=== PATIENT | male | born 1960 | race Caucasian/White ===

== ENCOUNTER 2018-12-03 10:17 | Emergency (ER) | payer OTHER, SELFPAY ==
[2018-12-03 10:18] VITALS: BP 140/84; PULSE 66; RESP 16; TEMP 36.7; O2SAT 98; BMI 33.0
[2018-12-03 10:31] VITALS: O2SAT 97
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
[2018-12-03] MEDS: 0.9% Normal Saline 1,000 ML 999 ML IV (10:41)
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
[2018-12-03 11:03] LABS: Absolute Lymphocyte Count 1.59 X10^3/ul (0.83-4.51); Absolute Neutrophil Count 4.7 X10^3/uL (2.0-7.7); Basophil# 0.05 X10^3/uL; Basophil% 0.7 % (0-1); Eosinophil# 0.18 X10^3/uL; Eosinophils% 2.5 % (0-5); Hematocrit 47.5 % (40-54); Hemoglobin 16.2 g/dl (13.0-16.5); Lymphocyte # 1.59 X10^3/ul (4.0); Lymphocyte % 22.3 % (19-41); Mean Corp Hgb Conc 34.1 g/gl (32-36); Mean Corpuscular Hgb 29.1 pg (27.0-32.0); Mean Corpuscular Volume 85.4 fL (80-94); Mean Platelet Vol. 10.1 fl (6.2-12.0); Monocyte# 0.54 X10^3/uL; Monocyte% 7.6 % (0-10); Neutrophil # 4.71 X10^3/uL (2.7-7.7); Neutrophil % 66.2 % (47-70); Platelet Count 190 K/mm3 (150-450); RBC Distribution Width CV 13.6 % (11.6-14.6); RBC Distribution Width SD 42.1 fl (35.1-43.9); Red Blood Count 5.56 M/mm3 (4.6-6.2); White Blood Count 7.1 K/mm3 (4.4-11.0)
[2018-12-03 11:06] LABS: POSITIVE COUNT NO; POSITIVE DIFFERENTIAL NO; POSITIVE MORPHOLOGY NO
[2018-12-03 11:08] LABS: Anion Gap 3 (5-15); BUN 17 mg/dL (7-18); Calcium,Total 8.6 mg/dL (8.5-10.1); Chloride 105 mmol/L (98-107); EST Glomerular Filtration Rate 82 mL/min (>60); Est Glom Filt Rate - Afr Amer 99 mL/min (>60); Estimated Creatinine Clearance 100.06 ml/min; Glucose 123 mg/dL (74-106); Potassium 3.7 mmol/L (3.5-5.1); Sodium Level 139 mmol/L (136-145)
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
[2018-12-03] MEDS: Diphth,Pertuss(Acell),Tet Vac 0.5 ML Vial IM (12:24)
== END 2018-12-03 12:36 | disposition home or self-care (01) ==
PROVIDERS: Emergency Provider Physician Assistant Medical; Family Provider Physician Assistant; PCP Physician Assistant
DX: S09.90XA Unspecified injury of head, initial encounter (principal); S30.1XXA Contusion of abdominal wall, initial encounter; S20.219A Contusion of unspecified front wall of thorax, initial encounter; S00.91XA Abrasion of unspecified part of head, initial encounter; S60.512A Abrasion of left hand, initial encounter; S60.511A Abrasion of right hand, initial encounter; V43.52XA Car driver injured in collision with other type car in traffic accident, initial encounter; Y93.9 Activity, unspecified; Y92.9 Unspecified place or not applicable; Y99.9 Unspecified external cause status
CPT/HCPCS: 70450; 71260; 72125; 73130; 74177; 80048; 85025; 90715; 96360; 99285; J7030; Q9967; A4216

== ENCOUNTER 2019-10-31 12:32 | Inpatient (IN) | payer OTHER, SELFPAY ==
[2019-10-31] VITALS (14 sets, daily range): BP systolic 99–133; BP diastolic 69–80; PULSE 86–108; RESP 17–31; TEMP 36.8–38.8; O2SAT 94–99; BMI 32.2; BMI 31.9
--- NOTE | 2019-10-31 12:40 | EKG12_ITS ---
Test Reason : SOB Blood Pressure : / mmHG Vent. Rate : 092 BPM Atrial Rate : 092 BPM P-R Int : 158 ms QRS Dur : 092 ms QT Int : 344 ms P-R-T Axes : 039 041 037 degrees QTc Int : 425 ms Normal sinus rhythm Normal ECG Confirmed by MILLICENT EATON ([id number]), associate editor MICHAEL HOGAN ([id number] on 11/06/2019 1:36:45 PM Referred By: CD Confirmed By:MILLICENT EATON
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
[2019-10-31] MEDS: Acetaminophen 325 MG Tablet 650 MG PO ×2 (13:04→20:20)
[2019-10-31 13:12] LABS: Absolute Lymphocyte Count 0.74 X10^3/uL (0.83-4.51); Hematocrit 44.7 % (40-54); Hemoglobin 15.5 g/dL (13.0-16.5); Lymphocyte # 0.74 X10^3/ul (4.0); Lymphocyte % 18.4 % (19-41); Mean Corp Hgb Conc 34.7 g/dL (32-36); Mean Corpuscular Hgb 29.2 pg (27.0-32.0); Mean Corpuscular Volume 84.2 fL (80-94); Monocyte% 7.5 % (0-10); NRBC Flagged by Analyzer 0 % (0-5); Neutrophil # 2.96 X10^3/uL (2.7-7.7); Neutrophil % 73.6 % (47-70); Platelet Count 136 K/mm3 (150-450); Red Blood Count 5.31 M/mm3 (4.6-6.2)
--- NOTE | 2019-10-31 13:16 | ED.VIS.GEN ---
History of Present Illness Chief Complaint: Shortness of Breath Narrative: 59-year-old male presents with shortness of breath. He has had symptoms for 1 week that began with diarrhea, fever, chills, cough, shortness of breath, and body aches. He went to [facility] yesterday and had a COVID swab but he does not have the results yet. He has been exposed to multiple COVID-19 cases at work. He denies any chronic respiratory illness. He continues to have a fever today and is not feeling any better. His shortness of breath has increased markedly over the past 24 hours. He has been gradually getting worse since this morning. Current severity is moderate. Prior similar symptoms: Yes Past Medical History - Allergies and Home Meds Allergies/Adverse Reactions: Allergies No Known Allergies Allergy (Verified 10/31/19 12:35) Primary Care Physician: Ingrid Calderon PA [Primary Care Provider] - Prior records reviewed: Yes Smoking Status: Never smoker Review of Systems General: Reports: Malaise. Denies: Chills, Fever, Sweats Eyes: Denies: Visual changes - bilaterally, Diplopia ENT: Denies: Rhinorrhea, Sore throat Cardiovascular: Reports: Chest pain. Denies: Palpitations Respiratory: Reports: Dyspnea, Cough. Denies: Dyspnea on exertion Gastrointestinal: Denies: Abdominal pain, Nausea, Vomiting, Diarrhea, Melena, Hematochezia Genitourinary: Denies: Dysuria, Hematuria, Frequency Musculoskeletal: Denies: Back pain, Extremity Pain Skin: Denies: Rash, Wounds Neurological: Denies: Headache, Weakness, Numbness Hematologic: Denies: Easy bleeding Physical Exam Vital Signs/Narrative: Vital Signs Temp Pulse Resp BP Pulse Ox 10/31/19 13:08 101.8 F H 95 27 H 99/69 95 10/31/19 12:32 101.8 F H 108 H 17 120/71 95 General: Well nourished, Well developed, No Acute Distress Head: Normocephalic, Atraumatic Eyes: Perrl, EOMI ENT: No rhinorrhea, Dry mucous membranes Neck: Supple, Nontender Cardiovascular: Regular rate, Regular rhythm, No murmurs Respiratory: No distress, Chest nontender, Decreased Air Movement Abdomen: Soft, Nontender, Nondistended, Normal bowel sounds Back: Nontender, Normal Inspection Extremities: Nontender, No edema Skin: Normal color, No rash Neurological: Alert, Oriented x3, Cranial nerves II-XII grossly intact, Normal Strength, Normal Sensation Psychological: Normal affect, Normal Mood Diagnostic/Tx/Re-eval Chest X-Ray - ED: 1 View, Read by Radiologist bilateral infiltrates - Rhythm Strip Rhythm Strip: Sinus Rhythm Rate: 92 Ectopy: None - Medical Decision Making His white blood cell count is low, lymphocyte count low, platelets low, fairly classic COVID-19 presentation. Very high suspicion. I sent a swab. Chest x-ray revealed bilateral infiltrates, also concerning for COVID-19. I covered him with Rocephin and Zithromax. He has no respiratory issue but on reexamination, he is still tachypneic, having fairly market shortness of breath, and requiring 1 to 2 L of oxygen so I do feel he meets criteria for hospitalization and I suspect his length of stay will be greater than 2 midnights for completion of care. I feel that he meets criteria for full admission. He will be admitted to the COVID unit. - Critical Care Time Critical care time (excluding procedures): 30-74 minutes, Discussing w/Patient &/or Family/Province Archivist, Discussing w/Consultants, Arranging Admission or Transfer, Performing Direct Patient Care at Bedside ED Disposition - Plan for ED Patient: Disposition: Acute Care [facility] Diagnosis: Suspected COVID-19 virus infection, Community acquired pneumonia Referrals: Ingrid Calderon PA [Primary Care Provider] -
[2019-10-31 13:28] LABS: ALB/GLOB Ratio 0.8 RATIO (0.9-2.4); AST(SGOT) 58 U/L (15-37); Alanine Aminotransfer ALT/SGPT 67 U/L (16-61); Albumin, Serum 3.1 g/dL (3.2-5.0); Alkaline Phosphatase 53 U/L (45-117); Anion Gap 10 (5-15); BUN 15 mg/dL (7-18); BUN/Creat Ratio 14.2 RATIO (10-20); Chloride 102 mmol/L (98-107); Creatinine, Serum 1.06 mg/dL (0.70-1.30); EST Glomerular Filtration Rate 76 mL/min (>60); Est Glom Filt Rate - Afr Amer 92 mL/min (>60); Estimated Creatinine Clearance 93.26 ml/min; Globulin 3.9 g/dL (2.2-4.2); Glucose 123 mg/dL (74-106); Sodium Level 137 mmol/L (136-145)
[2019-10-31 13:38] LABS: Lactic Acid 1.1 mmol/L (0.4-1.9)
--- NOTE | 2019-10-31 14:00 | NURSING ---
MED SURG COVID INFECTION, PNEUMONIA PAINTSIL
[2019-10-31] MEDS: Ceftriaxone 1 GM/50 ML BAG IV (14:01)
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
--- NOTE | 2019-10-31 14:07 | NURSING ---
CV[facility] 201
[2019-10-31 18:29] LABS: Ferritin 1047 ng/mL (26-388); Magnesium 2.1 mg/dL (1.6-2.6)
[2019-10-31 18:35] LABS: D-Dimer Quantitative (DVT/PE) 0.69 FEU/ug/m (0.27-0.49)
[2019-11-01] VITALS (12 sets, daily range): BP systolic 110–142; BP diastolic 66–84; PULSE 84–107; RESP 18–20; TEMP 37.2–38.4; O2SAT 94–98
[2019-11-01] MEDS: Acetaminophen 325 MG Tablet 650 MG PO ×2 (04:52→21:25)
[2019-11-01 05:16] LABS: Absolute Lymphocyte Count 0.77 X10^3/uL (0.83-4.51); Absolute Neutrophil Count 3.2 X10^3/uL (2.0-7.7); Basophil# 0.01 X10^3/uL; Basophil% 0.2 % (0-1); Hematocrit 49.3 % (40-54); Hemoglobin 16.7 g/dL (13.0-16.5); Lymphocyte # 0.77 X10^3/ul (4.0); Lymphocyte % 18.2 % (19-41); Mean Corp Hgb Conc 33.9 g/dL (32-36); Mean Corpuscular Hgb 29.2 pg (27.0-32.0); Mean Corpuscular Volume 86.2 fL (80-94); Monocyte# 0.26 X10^3/uL; Monocyte% 6.1 % (0-10); NRBC Flagged by Analyzer 0 % (0-5); Neutrophil # 3.18 X10^3/uL (2.7-7.7); Neutrophil % 75.3 % (47-70); Platelet Count 132 K/mm3 (150-450); RBC Distribution Width CV 13.2 % (11.6-14.6); RBC Distribution Width SD 40.9 fl (35.1-43.9); Red Blood Count 5.72 M/mm3 (4.6-6.2); White Blood Count 4.2 K/mm3 (4.4-11.0)
[2019-11-01 05:51] LABS: ALB/GLOB Ratio 0.7 RATIO (0.9-2.4); AST(SGOT) 50 U/L (15-37); Alanine Aminotransfer ALT/SGPT 69 U/L (16-61); Albumin, Serum 3.2 g/dL (3.2-5.0); Alkaline Phosphatase 59 U/L (45-117); Anion Gap 12 (5-15); BUN 15 mg/dL (7-18); BUN/Creat Ratio 13.3 RATIO (10-20); Calcium,Total 8.3 mg/dL (8.5-10.1); Chloride 100 mmol/L (98-107); Creatinine, Serum 1.13 mg/dL (0.70-1.30); EST Glomerular Filtration Rate 71 mL/min (>60); Est Glom Filt Rate - Afr Amer 86 mL/min (>60); Estimated Creatinine Clearance 87.48 ml/min; Globulin 4.4 g/dL (2.2-4.2); Glucose 116 mg/dL (74-106); Potassium 3.1 mmol/L (3.5-5.1); Protein, Total 7.6 g/dL (6.4-8.2); Sodium Level 137 mmol/L (136-145)
--- NOTE | 2019-11-01 07:15 | PN_ITS ---
Patient Problems: Active and Suspected Problems Suspected COVID-19 virus infection (Acute) Community acquired pneumonia (Acute) Hypoxia (Acute) Hypokalemia (Acute) Reason for Visit: Follow-up on hypoxia/Acute COVID Subjective: Patient was seen and examined. Complains of multiple bowel movement, more than 4 times today. Stool for enteric panel is negative. Temperature appears to be better. T-max was 101.8. He complains of feeling worse, his breathing is the same. Now on 3L of oxygen. Vitals/I&O's: Vital Signs Temp Pulse Resp BP Pulse Ox 99.2 F H 95 20 H 132/81 H 97 11/01/19 02:43 11/01/19 04:00 11/01/19 02:43 11/01/19 02:43 11/01/19 02:43 Oxygen Flow Rate (L/min) 4 Oxygen Delivery Method Nasal Cannula Weight: 119 kg Body Mass Index (BMI) 31.9 Intake and Output for Last 24 Hours 10/30/19 10/31/19 11/01/19 23:59 23:59 23:59 Intake Total 1045 / 1345 550 / 550 Balance 1045 / 1345 550 / 550 General: Alert, Oriented x3, Cooperative, No apparent distress HEENT: Atraumatic, PERRLA, EOMI, Normocephalic Oral: Moist Mucosa Neck: Supple Lungs: Diminished Cardiovascular: Regular rate, Regular Rhythm, Normal S1, Normal S2, No murmurs Abdomen: Bowel Sounds Present, Soft, Non Tender, Non-Distended, No Hepato- splenomegaly Extremities: No edema Skin: No rashes Musculoskeletal: No Tenderness to Palpation of Joints or Extremities Lymphatic: No Cervical, Supraclavicular, or Inguinal Adenopathy Neurological: Cranial nerves II-XII grossly intact, Neuro grossly intact Psych/Mental Status: Normal Affect, Appropriate Microbiology Past 72 Hours 10/31/19 18:55 Interface Orders Legionella Antigen - Final 10/31/19 18:55 Interface Orders Streptococcus pneumoniae Antigen (M - Final 10/31/19 12:58 Mucosa - Nasopharyngeal Coronavirus COVID-19 PCR - Final SARS-CoV-2 (COVID 19) Laboratory Results 10/31/19 12:55: WBC 4.0 L, RBC 5.31, Hgb 15.5, Hct 44.7, MCV 84.2, MCH 29.2, MCHC 34.7, RDW Std Deviation 40.0, RDW Coeff of Douglas 13.0, Plt Count 136 L, MPV 10.0, Immature Gran % (Auto) 0.500, Neut % (Auto) 73.6 H, Lymph % (Auto) 18.4 L, [place] % (Auto) 7.5, Eos % (Auto) 0.0, Baso % (Auto) 0.0, Absolute Neuts (auto) 3.0, Absolute Lymphs (auto) 0.74 L, Nucleated RBC % 0 10/31/19 12:55: Lactic Acid 1.1 10/31/19 12:55: Sodium 137, Potassium 3.0 L, Chloride 102, Carbon Dioxide 25.0, Anion Gap 10, BUN 15, Creatinine 1.06, Estim Creat Clear Calc 93.26, Est GFR (MDRD) Af Amer 92, Est GFR (MDRD) Non-Af 76, BUN/Creatinine Ratio 14.2, Glucose 123 H, Calcium 8.0 L, Total Bilirubin 0.80, AST 58 H, ALT 67 H, Alkaline Phosphatase 53, Troponin I < 0.015, Total Protein 7.0, Albumin 3.1 L, Globulin 3.9, Albumin/Globulin Ratio 0.8 L 10/31/19 12:55: Magnesium 2.1, Ferritin 1047 H, C-React Prot Ext Range 49.60 H 10/31/19 12:55: Procalcitonin 0.10 H 10/31/19 12:58: COVID-19 (FAZAL) Cancelled 10/31/19 : D-Dimer Quant (PE/DVT) 0.69 H* 11/01/19 04:40: WBC 4.2 L, RBC 5.72, Hgb 16.7 H, Hct 49.3, MCV 86.2, MCH 29.2, MCHC 33.9, RDW Std Deviation 40.9, RDW Coeff of Douglas 13.2, Plt Count 132 L, MPV 10.0, Immature Gran % (Auto) 0.200, Neut % (Auto) 75.3 H, Lymph % (Auto) 18.2 L, [place] % (Auto) 6.1, Eos % (Auto) 0.0, Baso % (Auto) 0.2, Absolute Neuts (auto) 3.2, Absolute Lymphs (auto) 0.77 L, Nucleated RBC % 0 11/01/19 04:40: Sodium 137, Potassium 3.1 L, Chloride 100, Carbon Dioxide 25.0, Anion Gap 12, BUN 15, Creatinine 1.13, Estim Creat Clear Calc 87.48, Est GFR (MDRD) Af Amer 86, Est GFR (MDRD) Non-Af 71, BUN/Creatinine Ratio 13.3, Glucose 116 H, Calcium 8.3 L, Total Bilirubin 0.70, AST 50 H, ALT 69 H, Alkaline Phosphatase 59, Total Protein 7.6, Albumin 3.2, Globulin 4.4 H, Albumin/Globulin Ratio 0.7 L Current Medications Acetaminophen (Tylenol) 650 mg PO Q6H PRN PRN PRN Reason: Pain Score 1-10/Temp > 100.7 F Last Admin: 11/01/19 04:52 Dose: 650 mg Documented by: Albuterol Sulfate (Ventolin Hfa (Sp)) 2 puff INHALATION Q4H PRN PRN PRN Reason: SHORTNESS OF BREATH Enoxaparin Sodium (Lovenox) 40 mg SC DAILY [facility] Ceftriaxone Sodium (Rocephin) 1 gm in 50 mls @ 100 mls/hr IV Q24 [facility] Azithromycin 500 mg/ Dextrose 255 mls @ 250 mls/hr IV Q24 [facility] Sodium Chloride () 250 mls @ 15 mls/hr IV .[id number] PRN PRN Reason: Saline Flush Sodium Chloride () 250 mls @ 15 mls/hr IV .[id number] PRN PRN Reason: Additional IVPB Infusion Ondansetron HCl (Zofran) 4 mg IV Q8H PRN PRN PRN Reason: NAUSEA/VOMITING Potassium Chloride (K-Dur) 40 meq PO BIDCM [facility] Sodium Chloride () 10 - 40 ml IV UD PRN PRN Reason: SALINE FLUSH STROKE Vital Signs/Narrative: Vital Signs Pulse 11/01/19 04:00 95 Medical Necessity - Tobacco Use Smoking Status: Never smoker Tobacco Use: Non-smoker Assessment/Plan All Active Problems Suspected COVID-19 virus infection (Acute) Community acquired pneumonia (Acute) Hypoxia (Acute) Hypokalemia (Acute) 1. Acute hypoxic respiratory insufficiency secondary to acute COVID associated pneumonia, persists Continue on oxygen, albuterol inhaler as needed, incentive spirometer, IV antibiotics Wean off for Spo2 >94% 2. Acute COVID-19 pneumonia, bilateral infiltrates noted on chest x-ray Continue on empiric IV ceftriaxone and azithromycin Blood cultures are pending Urine streptococcal and Legionella antigen is negative Continue in isolation 3. Acute diarrhea likely related to COVID?19 Stool for enteric pathogens is negative Will continue on symptomatic care 4. Hypokalemia continue to #3, replaced, Magnesium level is 2.3 4. Obesity, BMI 31.9, lifestyle modification advised 5. DVT PPx- Lovenox SC 6. Code status - Full code Inpatient E&M: 25155 Subs Hosp L3
[2019-11-01] MEDS: Enoxaparin 40 MG/0.4 ML Syringe SC (08:33)
[2019-11-01] MEDS: Ceftriaxone 1 GM/50 ML BAG IV (08:33)
[2019-11-01 10:16] LABS: Magnesium 2.3 mg/dL (1.6-2.6)
--- NOTE | 2019-11-01 10:50 | CASEMGMT ---
LAURENCE GARCIA assessment: Phone interview with patient due to positive COVID test for initial transition planning/care coordination assessment. LAURENCE GARCIA introduced self and role at [facility], pt voices understanding and consents to assessment at this time. Pt is A/Ox4 at this time and answers all questions appropriately at this time. Care providers, pharmacy, and demographics verified at this time. Presentation: SOB, worsening, seen at [facility] hospital day prior and COVID swab done Admitting dx: Acute hypoxic resp failure/COVID 19-[facility] test came back positive PCP: [facility] Specialists: Pt states currently no specialists. Preferred Pharmacy: [facility] Insurance: MMO/[employer] Prescription Benefit: Pt states has Rx coverage. Living Will/HPOA: Pt states does not have LW/HPOA and declines AD info at this time. LNOK: Rachel Gross, Living Arrangements: Pt states lives with in home and states no concerns at home at this time. Pt states is independent with ADL's. Transportation: Pt states drives self and states no transportation concerns at this time. DME/HHC: Pt states no current DME and denies need for any DME at this time. CM to follow for home oxygen need and pt states no preference for DME company, if does qualify for home oxygen at discharge. Pt states no hx of HHC or SNF in the past. Pt states no concerns with going home at time of discharge. 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 Pt states does not smoke or drink ETOH. Pt voices no further concerns/needs at this time. CM to follow for home oxygen and for any further discharge planning/needs. Advised pt to ask for CM if any further questions/concerns/needs arise, voices understanding. Pt Goal: Home Plan: [place] LAURENCE GARCIA
[2019-11-01] MEDS: Enoxaparin 80 MG/0.8 ML Syringe 70 MG SC (14:32)
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
[2019-11-01] MEDS: Enoxaparin 120 MG/0.8 ML Syringe 110 MG SC (21:14)
[2019-11-02] VITALS (12 sets, daily range): BP systolic 134–151; BP diastolic 64–82; PULSE 84–109; RESP 18–20; TEMP 36.9–39.4; O2SAT 94–100
[2019-11-02 03:59] LABS: Absolute Lymphocyte Count 0.84 X10^3/uL (0.83-4.51); Absolute Neutrophil Count 4.6 X10^3/uL (2.0-7.7); Basophil# 0.01 X10^3/uL; Basophil% 0.2 % (0-1); Hematocrit 44.8 % (40-54); Hemoglobin 15.3 g/dL (13.0-16.5); Lymphocyte # 0.84 X10^3/ul (4.0); Lymphocyte % 14.5 % (19-41); Mean Corp Hgb Conc 34.2 g/dL (32-36); Mean Corpuscular Hgb 29.5 pg (27.0-32.0); Mean Corpuscular Volume 86.3 fL (80-94); Mean Platelet Vol. 10.2 fl (6.2-12.0); Monocyte# 0.36 X10^3/uL; Monocyte% 6.2 % (0-10); NRBC Flagged by Analyzer 0 % (0-5); Neutrophil # 4.56 X10^3/uL (2.7-7.7); Neutrophil % 78.4 % (47-70); Platelet Count 142 K/mm3 (150-450); RBC Distribution Width CV 13.4 % (11.6-14.6); RBC Distribution Width SD 42.1 fl (35.1-43.9); Red Blood Count 5.19 M/mm3 (4.6-6.2); White Blood Count 5.8 K/mm3 (4.4-11.0)
[2019-11-02 04:16] LABS: ALB/GLOB Ratio 0.7 RATIO (0.9-2.4); AST(SGOT) 40 U/L (15-37); Alanine Aminotransfer ALT/SGPT 57 U/L (16-61); Alkaline Phosphatase 54 U/L (45-117); Anion Gap 9 (5-15); BUN 13 mg/dL (7-18); Calcium,Total 8.2 mg/dL (8.5-10.1); Chloride 99 mmol/L (98-107); Creatinine, Serum 1.08 mg/dL (0.70-1.30); EST Glomerular Filtration Rate 75 mL/min (>60); Est Glom Filt Rate - Afr Amer 90 mL/min (>60); Estimated Creatinine Clearance 91.53 ml/min; Globulin 4.4 g/dL (2.2-4.2); Glucose 121 mg/dL (74-106); Magnesium 2.2 mg/dL (1.6-2.6); Potassium 3.4 mmol/L (3.5-5.1); Protein, Total 7.4 g/dL (6.4-8.2); Sodium Level 136 mmol/L (136-145)
--- NOTE | 2019-11-02 07:26 | PCM.PN.HOSP ---
Patient Problems: Active and Suspected Problems Suspected COVID-19 virus infection (Acute) Community acquired pneumonia (Acute) Hypoxia (Acute) Hypokalemia (Acute) Reason for Visit: Follow-up on acute hypoxic resp failure/Acute COVID pneumonia Subjective: Patient was seen and examined. He feels improved. Diarrhea persists; slight less this morning than previous; had 3Bm today. Still with fever; temp this morning was 101.9F. Denies worsening SOB. Not used incentive spirometer Vitals/I&O's: Vital Signs Temp Pulse Resp BP Pulse Ox 99.1 F 85 18 145/81 H 99 11/02/19 03:15 11/02/19 03:23 11/02/19 03:15 11/02/19 03:15 11/02/19 03:15 Oxygen Flow Rate (L/min) 3 Oxygen Delivery Method Nasal Cannula Weight: 119 kg Body Mass Index (BMI) 31.9 Intake and Output for Last 24 Hours 10/31/19 11/01/19 11/02/19 23:59 23:59 23:59 Intake Total 1045 / 1345 1575 / 1695 1357.5 / 1357.5 Balance 1045 / 1345 1575 / 1695 1357.5 / 1357.5 General: Alert, Oriented x3, Cooperative, No apparent distress, - - comfortable, on 3L oxygen HEENT: Atraumatic, PERRLA, EOMI, Normocephalic Oral: Moist Mucosa Neck: Supple Lungs: Diminished Cardiovascular: Regular rate, Regular Rhythm, Normal S1, Normal S2, No murmurs Abdomen: Bowel Sounds Present, Soft, Non Tender, Non-Distended, No Hepato-splenomegaly, Distended, Obese Extremities: No edema Skin: No rashes, No breakdown Musculoskeletal: No Tenderness to Palpation of Joints or Extremities Lymphatic: No Cervical, Supraclavicular, or Inguinal Adenopathy Neurological: Cranial nerves II-XII grossly intact, Neuro grossly intact Psych/Mental Status: Normal Affect, Appropriate Microbiology Past 72 Hours 10/31/19 12:58 Mucosa - Nasopharyngeal Coronavirus COVID-19 PCR - Final SARS-CoV-2 (COVID 19) 10/31/19 18:55 Stool Enteric Bacteriology - Final 10/31/19 18:55 Interface Orders Legionella Antigen - Final 10/31/19 18:55 Interface Orders Streptococcus pneumoniae Antigen (M - Final Laboratory Results 11/01/19 04:40: Magnesium 2.3 11/02/19 03:30: WBC 5.8, RBC 5.19, Hgb 15.3, Hct 44.8, MCV 86.3, MCH 29.5, MCHC 34.2, RDW Std Deviation 42.1, RDW Coeff of Douglas 13.4, Plt Count 142 L, MPV 10.2, Immature Gran % (Auto) 0.700, Neut % (Auto) 78.4 H, Lymph % (Auto) 14.5 L, [place] % (Auto) 6.2, Eos % (Auto) 0.0, Baso % (Auto) 0.2, Absolute Neuts (auto) 4.6, Absolute Lymphs (auto) 0.84, Nucleated RBC % 0 11/02/19 03:30: Sodium 136, Potassium 3.4 L, Chloride 99, Carbon Dioxide 28.0, Anion Gap 9, BUN 13, Creatinine 1.08, Estim Creat Clear Calc 91.53, Est GFR (MDRD) Af Amer 90, Est GFR (MDRD) Non-Af 75, BUN/Creatinine Ratio 12.0, Glucose 121 H, Calcium 8.2 L, Magnesium 2.2, Total Bilirubin 0.60, AST 40 H, ALT 57, Alkaline Phosphatase 54, Total Protein 7.4, Albumin 3.0 L, Globulin 4.4 H, Albumin/Globulin Ratio 0.7 L Current Medications Acetaminophen (Tylenol) 650 mg PO Q6H PRN PRN PRN Reason: Pain Score 1-10/Temp > 100.7 F Last Admin: 11/01/19 21:25 Dose: 650 mg Documented by: Albuterol Sulfate (Ventolin Hfa (Sp)) 2 puff INHALATION Q4H PRN PRN PRN Reason: SHORTNESS OF BREATH Enoxaparin Sodium (Lovenox) 110 mg SC BID [facility] Last Admin: 11/01/19 21:14 Dose: 110 mg Documented by: Ceftriaxone Sodium (Rocephin) 1 gm in 50 mls @ 100 mls/hr IV Q24 [facility] Last Infusion: 11/01/19 09:29 Dose: Infused Documented by: Azithromycin 500 mg/ Dextrose 255 mls @ 250 mls/hr IV Q24 [facility] Last Infusion: 11/01/19 11:14 Dose: Infused Documented by: Sodium Chloride () 250 mls @ 15 mls/hr IV .[id number] PRN PRN Reason: Saline Flush Sodium Chloride () 250 mls @ 15 mls/hr IV .[id number] PRN PRN Reason: Additional IVPB Infusion Potassium Chloride 40 meq/ (Dextrose) 1,020 mls @ 75 mls/hr IV .[id number] [facility] Stop: 11/02/19 12:44 Last Admin: 11/02/19 00:45 Dose: 75 mls/hr Documented by: Ondansetron HCl (Zofran) 4 mg IV Q8H PRN PRN PRN Reason: NAUSEA/VOMITING Potassium Chloride (K-Dur) 40 meq PO BIDCM [facility] Last Admin: 11/01/19 16:48 Dose: 40 meq Documented by: Sodium Chloride () 10 - 40 ml IV UD PRN PRN Reason: SALINE FLUSH Medical Necessity - Tobacco Use Smoking Status: Never smoker Tobacco Use: Non-smoker Assessment/Plan All Active Problems Suspected COVID-19 virus infection (Acute) Community acquired pneumonia (Acute) Hypoxia (Acute) Hypokalemia (Acute) 1. Acute hypoxic respiratory insufficiency secondary to acute COVID associated pneumonia, remains the same Not been on incentive spirometer; recommended aggressive pulmonary toiletting Continue on oxygen, albuterol inhaler as needed, IV antibiotics Wean off for Spo2 >94% 2. Acute COVID-19 pneumonia, bilateral infiltrates noted on chest x-ray LFTs appear to be improving, D-dimer elevated at admission Urine streptococcal and Legionella antigen are negative Off empiric IV antibiotics Blood cultures are pending Continue on therapeutic Lovenox, repeat CRP, BNPep, ferritin in am Continue in isolation 3. Acute diarrhea likely related to COVID?19, persists Stool for enteric pathogens is negative Imodium prn 4. Hypokalemia continue to #3, replaced, 5. Obesity, BMI 31.9, lifestyle modification advised 6. DVT PPx- Lovenox SC 7. Code status - Full code Inpatient E&M: 61508 Subs Hosp L2
--- NOTE | 2019-11-02 08:13 | PCM.PN.PUL ---
Patient Problems: Active and Suspected Problems Suspected COVID-19 virus infection (Acute) Community acquired pneumonia (Acute) Hypoxia (Acute) Hypokalemia (Acute) Subjective: Patient did okay overnight. Patient did have 6-8 bowel movements overnight. Patient states these continue to be watery, but vary in volume. Patient denies any significant abdominal pain. Patient still has some dyspnea on exertion, but is comfortable at rest. - Physical Exam Vitals/I&O's: Vital Signs Temp Pulse Resp BP Pulse Ox 37.3 C 85 18 145/81 H 99 11/02/19 03:15 11/02/19 03:23 11/02/19 03:15 11/02/19 03:15 11/02/19 03:15 Oxygen Flow Rate (L/min) 3 Oxygen Delivery Method Nasal Cannula Weight: 119 kg Body Mass Index (BMI) 31.9 Intake and Output for Last 24 Hours 10/31/19 11/01/19 11/02/19 23:59 23:59 23:59 Intake Total 1045 / 1345 1575 / 1695 1357.5 / 1357.5 Balance 1045 / 1345 1575 / 1695 1357.5 / 1357.5 General: Alert, Oriented x3, Cooperative, No apparent distress, - - Conversational dyspnea is improving HEENT: Atraumatic, PERRLA, EOMI, Normocephalic, - - No scleral icterus or injection noted Oral: Moist Mucosa, No Gingival or Mucosal Lesions/ Ulcerations Neck: Supple, No JVD, No Nodes, Trachea Midline Lungs: No rhonchi, No rales, Diminished, Wheezes - Sporadic at end exhalation, - - Symmetric expansion Cardiovascular: Regular rate, Regular Rhythm, Normal S1, Normal S2, No murmurs, No rub noted, No Gallop Abdomen: Bowel Sounds Present, Soft, Non Tender, Non-Distended, Obese Extremities: No clubbing, No cyanosis, No edema, Capillary Refill Less than 3 Seconds Skin: No rashes, No breakdown Musculoskeletal: No Tenderness to Palpation of Joints or Extremities Lymphatic: No Cervical, Supraclavicular, or Inguinal Adenopathy Neurological: Cranial nerves II-XII grossly intact, Neuro grossly intact, Motor Exam 5/5 strength throughout Psych/Mental Status: Alert and oriented to time, place, person, mood and affect Microbiology Past 72 Hours 10/31/19 12:58 Mucosa - Nasopharyngeal Coronavirus COVID-19 PCR - Final SARS-CoV-2 (COVID 19) 10/31/19 18:55 Stool Enteric Bacteriology - Final 10/31/19 18:55 Interface Orders Legionella Antigen - Final 10/31/19 18:55 Interface Orders Streptococcus pneumoniae Antigen (M - Final Laboratory Results 11/01/19 04:40: Magnesium 2.3 11/02/19 03:30: WBC 5.8, RBC 5.19, Hgb 15.3, Hct 44.8, MCV 86.3, MCH 29.5, MCHC 34.2, RDW Std Deviation 42.1, RDW Coeff of Douglas 13.4, Plt Count 142 L, MPV 10.2, Immature Gran % (Auto) 0.700, Neut % (Auto) 78.4 H, Lymph % (Auto) 14.5 L, Brooks % (Auto) 6.2, Eos % (Auto) 0.0, Baso % (Auto) 0.2, Absolute Neuts (auto) 4.6, Absolute Lymphs (auto) 0.84, Nucleated RBC % 0 11/02/19 03:30: Sodium 136, Potassium 3.4 L, Chloride 99, Carbon Dioxide 28.0, Anion Gap 9, BUN 13, Creatinine 1.08, Estim Creat Clear Calc 91.53, Est GFR (MDRD) Af Amer 90, Est GFR (MDRD) Non-Af 75, BUN/Creatinine Ratio 12.0, Glucose 121 H, Calcium 8.2 L, Magnesium 2.2, Total Bilirubin 0.60, AST 40 H, ALT 57, Alkaline Phosphatase 54, Total Protein 7.4, Albumin 3.0 L, Globulin 4.4 H, Albumin/Globulin Ratio 0.7 L Current Medications Acetaminophen (Tylenol) 650 mg PO Q6H PRN PRN PRN Reason: Pain Score 1-10/Temp > 100.7 F Last Admin: 11/01/19 21:25 Dose: 650 mg Documented by: Albuterol Sulfate (Ventolin Hfa (Sp)) 2 puff INHALATION Q4H PRN PRN PRN Reason: SHORTNESS OF BREATH Enoxaparin Sodium (Lovenox) 110 mg SC BID [facility] Last Admin: 11/01/19 21:14 Dose: 110 mg Documented by: Ceftriaxone Sodium (Rocephin) 1 gm in 50 mls @ 100 mls/hr IV Q24 [facility] Last Infusion: 11/01/19 09:29 Dose: Infused Documented by: Azithromycin 500 mg/ Dextrose 255 mls @ 250 mls/hr IV Q24 [facility] Last Infusion: 11/01/19 11:14 Dose: Infused Documented by: Sodium Chloride () 250 mls @ 15 mls/hr IV .[id number] PRN PRN Reason: Saline Flush Sodium Chloride () 250 mls @ 15 mls/hr IV .[id number] PRN PRN Reason: Additional IVPB Infusion Potassium Chloride 40 meq/ (Dextrose) 1,020 mls @ 75 mls/hr IV .[id number] [facility] Stop: 11/02/19 12:44 Last Admin: 11/02/19 00:45 Dose: 75 mls/hr Documented by: Ondansetron HCl (Zofran) 4 mg IV Q8H PRN PRN PRN Reason: NAUSEA/VOMITING Potassium Chloride (K-Dur) 40 meq PO BIDCM [facility] Last Admin: 11/01/19 16:48 Dose: 40 meq Documented by: Sodium Chloride () 10 - 40 ml IV UD PRN PRN Reason: SALINE FLUSH Medical Necessity - Tobacco Use Smoking Status: Never smoker Tobacco Use: Non-smoker Assessment/Plan All Active Problems Suspected COVID-19 virus infection (Acute) Community acquired pneumonia (Acute) Hypoxia (Acute) Hypokalemia (Acute) RECOMMENDATIONS: 1. Wean supplemental oxygen as tolerated 2. Agree with anticoagulation 3. Not sick enough for convalescent plasma at this time 4. Agree with gentle hydration 5. Likely discontinue antibiotics at 48 hours if culture negative 6. Would not recommend steroid therapy at this time 7. Potassium supplementation as indicated IMPRESSIONS: 1. Acute hypoxic respiratory insufficiency secondary to acute COVID associated pneumonia Low clinical suspicion for superimposed bacterial infection at this time. Reasonable to continue with antibiotics for now until cultures negative. Procalcitonin is low indicating low risk for systemic sepsis. Patient reports minimal shortness of breath, but does have significant dyspnea on exertion and conversational dyspnea. This does appear to be improving. Patient does not appear to have any underlying obstructive lung disease, so steroids would be contraindicated. Agree with initiation of anticoagulation. Data for Plaquenil and azithromycin have been showing marginal effect with possible complications. Given patient's increase in liver enzymes, would not recommend Plaquenil and azithromycin for now. Wean oxygen as tolerated. 2. Hypokalemia secondary to acute diarrhea, likely secondary to COVID-19 Patient has reported 14 bowel movements over the last 24 hours. Patient is currently on maintenance fluids with potassium supplementation. This may improve if antibiotics are discontinued today with culture negative status. Patient is showing improving signs of hemoconcentration. Probable cause of hypokalemia. Will need to check magnesium levels routinely and replete as necessary. Could discuss discharge if patient is able to get below 5-6 bowel movements per day and not require supplemental IV fluids. 3. Obesity/CODE STATUS Complicates care, management, recovery and prognosis. Given patient's COVID positive status, would not initiate empiric nocturnal positive airway pressure, but does have several risk factors for obstructive sleep apnea. Confirmed patient is a full code Inpatient E&M: 77921 Subs Hosp L2
[2019-11-02] MEDS: Acetaminophen 325 MG Tablet 650 MG PO ×3 (08:28→21:53)
[2019-11-02] MEDS: Enoxaparin 120 MG/0.8 ML Syringe 110 MG SC ×2 (10:07→21:46)
--- NOTE | 2019-11-02 10:22 | CON.PCM_ITS ---
Problem List (1) Suspected COVID-19 virus infection Status: Acute Reason for Consult: covid Consulted by: Dr. Glass History of Present Illness: The patient is a 59 year old M with minimal PMH, presented 10/30 with 10 days of fever, chills, dry cough, dyspnea, diarrhea, mild sore throat, change in taste, aches, fatigue. Sx started around 10/22. Work's at [employer] where there has been covid cases. Has been masking. Diarrhea about 8-10 times a day. No recent travel. Lives with and 2 daughters. and one daughter now with fever, cough, not feeling well; they have not been tested. With worsening fever, came to ED, admitted in isolation with covid (+), given azithro/ceftriaxone. Feeling mildly better, still on O2, still with fever, still diarrhea. Full ROS performed and neg except as noted above. - Medical History Surgical History: reviewed Allergies/Adverse Reactions: Allergies No Known Allergies Allergy (Verified 10/31/19 12:35) Home Medications: Ambulatory Orders Medication Instructions Recorded NK 10/31/19 - Social History Tobacco Use: non-smoker Vital Signs Temp Pulse Resp BP Pulse Ox 101.9 F H 109 H 18 134/79 H 94 11/02/19 08:20 11/02/19 08:20 11/02/19 08:20 11/02/19 08:20 11/02/19 08:20 Oxygen Flow Rate (L/min) 3 Oxygen Delivery Method Nasal Cannula Weight: 119 kg Body Mass Index (BMI) 31.9 Microbiology Past 72 Hours 10/31/19 12:58 Coronavirus COVID-19 PCR - Final Mucosa - Nasopharyngeal SARS-CoV-2 (COVID 19) 10/31/19 18:55 Enteric Bacteriology - Final Stool 10/31/19 18:55 Legionella Antigen - Final Interface Orders Streptococcus pneumoniae Antigen (M - Final Laboratory Tests Past 24 Hrs 11/02/19 11/02/19 03:30 03:30 WBC 5.8 RBC 5.19 Hgb 15.3 Hct 44.8 MCV 86.3 MCH 29.5 MCHC 34.2 RDW Std Deviation 42.1 RDW Coeff of Douglas 13.4 Plt Count 142 L MPV 10.2 Immature Gran % (Auto) 0.700 Neut % (Auto) 78.4 H Lymph % (Auto) 14.5 L [place] % (Auto) 6.2 Eos % (Auto) 0.0 Baso % (Auto) 0.2 Absolute Neuts (auto) 4.6 Absolute Lymphs (auto) 0.84 Nucleated RBC % 0 Sodium 136 Potassium 3.4 L Chloride 99 Carbon Dioxide 28.0 Anion Gap 9 BUN 13 Creatinine 1.08 Estim Creat Clear Calc 91.53 Est GFR (MDRD) Af Amer 90 Est GFR (MDRD) Non-Af 75 BUN/Creatinine Ratio 12.0 Glucose 121 H Calcium 8.2 L Magnesium 2.2 Total Bilirubin 0.60 AST 40 H ALT 57 Alkaline Phosphatase 54 Total Protein 7.4 Albumin 3.0 L Globulin 4.4 H Albumin/Globulin Ratio 0.7 L - Other Studies Radiology: [] reviewed Other Studies: [] Route of nutrition/ use of supplements: [] Nutritional Intake: [] IV Site: [] Granado Catheter: [] - Physical Exam General: Alert, Oriented x3, Cooperative, No apparent distress HEENT: Atraumatic, PERRLA, EOMI Neck: Supple, No Nodes Lungs: Rales - mild in bases Cardiovascular: Regular rate, Regular Rhythm, No murmurs Abdomen: Soft, Non Tender, Non-Distended Extremities: No edema Skin: No rashes IV Site: Peripheral, without redness Musculoskeletal: No Tenderness to Palpation of Joints or Extremities Neurological: Cranial nerves II-XII grossly intact - Assessment/Plan Antibiotics: [] Assessment/Plan: [] Active and Suspected Problems Suspected COVID-19 virus infection (Acute) Community acquired pneumonia (Acute) Hypoxia (Acute) Hypokalemia (Acute) COVID (+) with hypoxia. PCT was neg. UAg neg. Bcx neg so far. No sputum. Still with fever. Had elevated CRP, ferritin, and LFTs. Mild elevation in d- dimer. Lymphopenia present on admit as well. Still on 3L O2, still with diarrhea. Cdiff and pcr panel was neg. Is on therapeutic anticoagulation. No evidence of bacterial infection at this point. Recommend stopping azithro/ceftriaxone which may help with his diarrhea. Would get repeat ferritin and CRP with next lab draw. Mild crackles in both bases, will add on BNP to AM labs, could consider trying some diuresis. Lives with and 2 daughters. and one daughter now with fever, cough, not feeling well; they have not been tested. They do have pulse ox at home and are monitoring. Have been in contact with their PCP. Other daughter is feeling fine and is isolating at home. Will follow, thank you, d/w Dr. Glass.
[2019-11-02 11:37] LABS: BNP,B-Type NATRIURETIC PEPTIDE 6.6 pg/mL (0-100)
[2019-11-02] MEDS: Loperamide 2 MG Capsule PO (12:17)
[2019-11-03] VITALS (14 sets, daily range): BP systolic 122–139; BP diastolic 67–81; PULSE 94–106; RESP 18–26; TEMP 37–38.8; O2SAT 94–99
[2019-11-03] MEDS: 0.9% Saline Lock 10 ML Syringe IV (03:52)
[2019-11-03] MEDS: Loperamide 2 MG Capsule PO ×4 (03:52→15:44)
[2019-11-03 04:49] LABS: Absolute Lymphocyte Count 0.99 X10^3/uL (0.83-4.51); Basophil# 0.02 X10^3/uL; Basophil% 0.3 % (0-1); Hematocrit 46.4 % (40-54); Hemoglobin 15.7 g/dL (13.0-16.5); Lymphocyte # 0.99 X10^3/ul (4.0); Lymphocyte % 15.3 % (19-41); Mean Corp Hgb Conc 33.8 g/dL (32-36); Mean Corpuscular Hgb 29.1 pg (27.0-32.0); Mean Corpuscular Volume 86.1 fL (80-94); Mean Platelet Vol. 10.6 fl (6.2-12.0); Monocyte# 0.39 X10^3/uL; NRBC Flagged by Analyzer 0 % (0-5); Neutrophil # 5.03 X10^3/uL (2.7-7.7); Neutrophil % 77.6 % (47-70); Platelet Count 135 K/mm3 (150-450); RBC Distribution Width CV 13.4 % (11.6-14.6); RBC Distribution Width SD 41.9 fl (35.1-43.9); Red Blood Count 5.39 M/mm3 (4.6-6.2); White Blood Count 6.5 K/mm3 (4.4-11.0)
[2019-11-03 05:05] LABS: ALB/GLOB Ratio 0.6 RATIO (0.9-2.4); AST(SGOT) 44 U/L (15-37); Alanine Aminotransfer ALT/SGPT 61 U/L (16-61); Albumin, Serum 2.9 g/dL (3.2-5.0); Alkaline Phosphatase 50 U/L (45-117); Anion Gap 10 (5-15); BUN 14 mg/dL (7-18); Calcium,Total 8.2 mg/dL (8.5-10.1); Chloride 99 mmol/L (98-107); Creatinine, Serum 1.08 mg/dL (0.70-1.30); EST Glomerular Filtration Rate 75 mL/min (>60); Est Glom Filt Rate - Afr Amer 90 mL/min (>60); Estimated Creatinine Clearance 91.53 ml/min; Ferritin 1461 ng/mL (26-388); Globulin 4.5 g/dL (2.2-4.2); Glucose 106 mg/dL (74-106); Potassium 3.5 mmol/L (3.5-5.1); Protein, Total 7.4 g/dL (6.4-8.2); Sodium Level 134 mmol/L (136-145)
--- NOTE | 2019-11-03 06:40 | PN_ITS ---
Patient Problems: Active and Suspected Problems Suspected COVID-19 virus infection (Acute) Community acquired pneumonia (Acute) Hypoxia (Acute) Hypokalemia (Acute) Subjective: Patient did okay overnight. Patient did have 6 bowel movements overnight, but is maintaining saturations on 3 L nasal cannula. Patient also had significant fever, but tolerated this well. Patient is not reporting any bleeding complications. - Physical Exam Vitals/I&O's: Vital Signs Temp Pulse Resp BP Pulse Ox 37.0 C 99 20 H 139/80 H 98 11/03/19 03:53 11/03/19 04:00 11/03/19 03:53 11/03/19 03:53 11/03/19 03:53 Oxygen Flow Rate (L/min) 3 Oxygen Delivery Method Nasal Cannula Weight: 119 kg Body Mass Index (BMI) 31.9 Intake and Output for Last 24 Hours 11/01/19 11/02/19 11/03/19 23:59 23:59 23:59 Intake Total 1575 / 1695 2606.58 / 2606.58 120 / 120 Balance 1575 / 1695 2606.58 / 2606.58 120 / 120 General: Alert, Oriented x3, Cooperative, No apparent distress, Well developed, Well nourished, - - Grossly appears less sick today. Sitting in the chair. HEENT: Atraumatic, PERRLA, EOMI, Normocephalic, - - Slight scleral injection without icterus Oral: Moist Mucosa, No Gingival or Mucosal Lesions/ Ulcerations Neck: Supple, No JVD, No Nodes, Trachea Midline Lungs: No rhonchi, No wheeze, No rales, Diminished, - - Fair effort. Still with mild conversational dyspnea. Cardiovascular: Regular rate, Regular Rhythm, Normal S1, Normal S2, No murmurs, No rub noted, No Gallop Abdomen: Bowel Sounds Present, Soft, Non Tender, Non-Distended, Obese Extremities: No clubbing, No cyanosis, No edema Skin: No rashes, No breakdown Musculoskeletal: No Tenderness to Palpation of Joints or Extremities Lymphatic: No Cervical, Supraclavicular, or Inguinal Adenopathy Neurological: Cranial nerves II-XII grossly intact, Neuro grossly intact, Motor Exam 5/5 strength throughout Psych/Mental Status: Alert and oriented to time, place, person, mood and affect Microbiology Past 72 Hours 10/31/19 13:02 Blood Culture (Wb) #2 - Right Forearm Blood Culture - Preliminary No growth in 48 hours. 10/31/19 12:55 Blood Culture (Wb) - Left Wrist Blood Culture - Preliminary No growth in 48 hours. 10/31/19 12:58 Mucosa - Nasopharyngeal Coronavirus COVID-19 PCR - Final SARS-CoV-2 (COVID 19) 10/31/19 18:55 Stool Enteric Bacteriology - Final 10/31/19 18:55 Interface Orders Legionella Antigen - Final 10/31/19 18:55 Interface Orders Streptococcus pneumoniae Antigen (M - Final Laboratory Results 11/02/19 03:30: B-Natriuretic Peptide 6.6 11/03/19 04:45: WBC 6.5, RBC 5.39, Hgb 15.7, Hct 46.4, MCV 86.1, MCH 29.1, MCHC 33.8, RDW Std Deviation 41.9, RDW Coeff of Douglas 13.4, Plt Count 135 L, MPV 10.6, Immature Gran % (Auto) 0.800, Neut % (Auto) 77.6 H, Lymph % (Auto) 15.3 L, [place] % (Auto) 6.0, Eos % (Auto) 0.0, Baso % (Auto) 0.3, Absolute Neuts (auto) 5.0, Absolute Lymphs (auto) 0.99, Nucleated RBC % 0 11/03/19 04:45: Sodium 134 L, Potassium 3.5, Chloride 99, Carbon Dioxide 25.0, Anion Gap 10, BUN 14, Creatinine 1.08, Estim Creat Clear Calc 91.53, Est GFR (MDRD) Af Amer 90, Est GFR (MDRD) Non-Af 75, BUN/Creatinine Ratio 13.0, Glucose 106, Calcium 8.2 L, Ferritin 1461 H, Total Bilirubin 0.60, AST 44 H, ALT 61, Alkaline Phosphatase 50, C-React Prot Ext Range 98.10 H, Total Protein 7.4, Albumin 2.9 L, Globulin 4.5 H, Albumin/Globulin Ratio 0.6 L Current Medications Acetaminophen (Tylenol) 650 mg PO Q6H PRN PRN PRN Reason: Pain Score 1-10/Temp > 100.7 F Last Admin: 11/02/19 21:53 Dose: 650 mg Documented by: Albuterol Sulfate (Ventolin Hfa (Sp)) 2 puff INHALATION Q4H PRN PRN PRN Reason: SHORTNESS OF BREATH Enoxaparin Sodium (Lovenox) 110 mg SC BID [facility] Last Admin: 11/02/19 21:46 Dose: 110 mg Documented by: Sodium Chloride () 250 mls @ 15 mls/hr IV .[id number] PRN PRN Reason: Saline Flush Sodium Chloride () 250 mls @ 15 mls/hr IV .[id number] PRN PRN Reason: Additional IVPB Infusion Loperamide HCl (Imodium) 2 mg PO Q6H PRN PRN PRN Reason: Diarrhea Last Admin: 11/03/19 03:52 Dose: 2 mg Documented by: Ondansetron HCl (Zofran) 4 mg IV Q8H PRN PRN PRN Reason: NAUSEA/VOMITING [facility] Last Admin: 11/02/19 16:02 Dose: 40 meq Documented by: Sodium Chloride () 10 - 40 ml IV UD PRN PRN Reason: SALINE FLUSH Last Admin: 11/03/19 03:52 Dose: 20 ml Documented by: Medical Necessity - Tobacco Use Smoking Status: Never smoker Tobacco Use: Non-smoker Assessment/Plan All Active Problems Suspected COVID-19 virus infection (Acute) Community acquired pneumonia (Acute) Hypoxia (Acute) Hypokalemia (Acute) RECOMMENDATIONS: 1. Wean supplemental oxygen as tolerated 2. Continue with anticoagulation 3. Not sick enough for convalescent plasma at this time 4. Monitor fluid status. 5. Would not recommend steroid therapy at this time 6. Potassium supplementation as indicated IMPRESSIONS: 1. Acute hypoxic respiratory insufficiency secondary to acute COVID associated pneumonia Low clinical suspicion for superimposed bacterial infection at this time. Antibiotics have been discontinued. Procalcitonin is low indicating low risk for systemic sepsis. Patient reports minimal shortness of breath, but does have some dyspnea on exertion and conversational dyspnea. This does appear to be improving. Patient does not appear to have any underlying obstructive lung disease, so steroids would be contraindicated. Agree with initiation of anticoagulation. Data for Plaquenil and azithromycin have been showing marginal effect with possible complications. Given patient's increase in liver enzymes, would not recommend Plaquenil and azithromycin for now. Infectious diseases following. Wean oxygen as tolerated. 2. Hypokalemia secondary to acute diarrhea, likely secondary to COVID-19 Patient has reported 12 bowel movements over the last 24 hours. Patient is currently off maintenance fluids with potassium supplementation. This may improve if antibiotics are discontinued today with culture negative status. Patient is showing improving signs of hemoconcentration. Probable cause of hypokalemia. Will need to check magnesium levels intermittently and replete as necessary. Could discuss discharge if patient is able to get below 5-6 bowel movements per day and not require supplemental IV fluids. 3. Obesity/CODE STATUS Complicates care, management, recovery and prognosis. Given patient's COV ID positive status, would not initiate empiric nocturnal positive airway pressure, but does have several risk factors for obstructive sleep apnea. Confirmed patient is a full code Inpatient E&M: 89431 Subs Hosp L2
--- NOTE | 2019-11-03 07:31 | PN_ITS ---
Patient Problems: Active and Suspected Problems Suspected COVID-19 virus infection (Acute) Community acquired pneumonia (Acute) Hypoxia (Acute) Hypokalemia (Acute) Reason for Visit: Follow-up on acute hypoxic resp failure/Acute COVID pneumonia Subjective: Patient was seen and examined. He complains of feeling worse today. His diarrhea persists -has had 4 bowel movement this morning. Still has fevers. Narciso on 2 L of oxygen. No nausea or vomiting. Objective: Physical exam: General: Alert, Oriented x3, Cooperative, No apparent distress, - - comfortable, on 2L oxygen HEENT: Atraumatic, PERRLA, EOMI, Normocephalic Oral: Moist Mucosa Neck: Supple Lungs: Diminished Cardiovascular: Regular rate, Regular Rhythm, Normal S1, Normal S2, No murmurs Abdomen: Bowel Sounds Present, Soft, Non Tender, Non-Distended, No Hepato- splenomegaly, Distended, Obese Extremities: No edema Skin: No rashes, No breakdown Musculoskeletal: No Tenderness to Palpation of Joints or Extremities Lymphatic: No Cervical, Supraclavicular, or Inguinal Adenopathy Neurological: Cranial nerves II-XII grossly intact, Neuro grossly intact Psych/Mental Status: Normal Affect, Appropriate Vitals/I&O's: Vital Signs Temp Pulse Resp BP Pulse Ox 98.6 F 105 H 20 H 139/80 H 98 11/03/19 03:53 11/03/19 07:00 11/03/19 03:53 11/03/19 03:53 11/03/19 03:53 Oxygen Flow Rate (L/min) 3 Oxygen Delivery Method Nasal Cannula Weight: 119 kg Body Mass Index (BMI) 31.9 Intake and Output for Last 24 Hours 11/01/19 11/02/19 11/03/19 23:59 23:59 23:59 Intake Total 1575 / 1695 2606.58 / 2606.58 120 / 120 Balance 1575 / 1695 2606.58 / 2606.58 120 / 120 Microbiology Past 72 Hours 10/31/19 13:02 Blood Culture (Wb) #2 - Right Forearm Blood Culture - Preliminary No growth in 48 hours. 10/31/19 12:55 Blood Culture (Wb) - Left Wrist Blood Culture - Preliminary No growth in 48 hours. 10/31/19 12:58 Mucosa - Nasopharyngeal Coronavirus COVID-19 PCR - Final SARS-CoV-2 (COVID 19) 10/31/19 18:55 Stool Enteric Bacteriology - Final 10/31/19 18:55 Interface Orders Legionella Antigen - Final 10/31/19 18:55 Interface Orders Streptococcus pneumoniae Antigen (M - Final Laboratory Results 11/02/19 03:30: B-Natriuretic Peptide 6.6 11/03/19 04:45: WBC 6.5, RBC 5.39, Hgb 15.7, Hct 46.4, MCV 86.1, MCH 29.1, MCHC 33.8, RDW Std Deviation 41.9, RDW Coeff of Douglas 13.4, Plt Count 135 L, MPV 10.6, Immature Gran % (Auto) 0.800, Neut % (Auto) 77.6 H, Lymph % (Auto) 15.3 L, [place] % (Auto) 6.0, Eos % (Auto) 0.0, Baso % (Auto) 0.3, Absolute Neuts (auto) 5.0, Absolute Lymphs (auto) 0.99, Nucleated RBC % 0 11/03/19 04:45: Sodium 134 L, Potassium 3.5, Chloride 99, Carbon Dioxide 25.0, Anion Gap 10, BUN 14, Creatinine 1.08, Estim Creat Clear Calc 91.53, Est GFR (MDRD) Af Amer 90, Est GFR (MDRD) Non-Af 75, BUN/Creatinine Ratio 13.0, Glucose 106, Calcium 8.2 L, Ferritin 1461 H, Total Bilirubin 0.60, AST 44 H, ALT 61, Alkaline Phosphatase 50, C-React Prot Ext Range 98.10 H, Total Protein 7.4, Albumin 2.9 L, Globulin 4.5 H, Albumin/Globulin Ratio 0.6 L Current Medications Acetaminophen (Tylenol) 650 mg PO Q6H PRN PRN PRN Reason: Pain Score 1-10/Temp > 100.7 F Last Admin: 11/02/19 21:53 Dose: 650 mg Documented by: Albuterol Sulfate (Ventolin Hfa (Sp)) 2 puff INHALATION Q4H PRN PRN PRN Reason: SHORTNESS OF BREATH Enoxaparin Sodium (Lovenox) 110 mg SC BID [facility] Last Admin: 11/02/19 21:46 Dose: 110 mg Documented by: Sodium Chloride () 250 mls @ 15 mls/hr IV .[id number] PRN PRN Reason: Saline Flush Sodium Chloride () 250 mls @ 15 mls/hr IV .[id number] PRN PRN Reason: Additional IVPB Infusion Loperamide HCl (Imodium) 2 mg PO Q6H PRN PRN PRN Reason: Diarrhea Last Admin: 11/03/19 03:52 Dose: 2 mg Documented by: Ondansetron HCl (Zofran) 4 mg IV Q8H PRN PRN PRN Reason: NAUSEA/VOMITING Potassium Chloride (K-Dur) 40 meq PO BIDCM [facility] Last Admin: 11/02/19 16:02 Dose: 40 meq Documented by: Sodium Chloride () 10 - 40 ml IV UD PRN PRN Reason: SALINE FLUSH Last Admin: 11/03/19 03:52 Dose: 20 ml Documented by: STROKE Vital Signs/Narrative: Vital Signs Temp Pulse Resp BP Pulse Ox 11/03/19 07:00 105 H 11/03/19 04:00 99 11/03/19 03:53 98.6 F 95 20 H 139/80 H 98 Medical Necessity - Tobacco Use Smoking Status: Never smoker Tobacco Use: Non-smoker Assessment/Plan All Active Problems Suspected COVID-19 virus infection (Acute) Community acquired pneumonia (Acute) Hypoxia (Acute) Hypokalemia (Acute) 1. Acute hypoxic respiratory insufficiency secondary to acute COVID associated pneumonia, remains about the same Continue on oxygen, albuterol inhaler as needed, encourage use of incentive spirometer Wean off for Spo2 >94% 2. Acute COVID-19 pneumonia, bilateral infiltrates noted on chest x-ray LFTs have improved, D-dimer elevated at admission Urine streptococcal and Legionella antigen are negative CRP is worse, currently 98.1 from 49.6. Ferritin is 1461 from 1047 Off empiric IV antibiotics Blood cultures are negative Continue on therapeutic Lovenox Continue in isolation 3. Acute diarrhea likely related to COVID?19, persists Stool for enteric pathogens is negative Increase frequency of Imodium to every 2 hours prn 4. Hypokalemia, resolved, continue on po potassium 5. Obesity, BMI 31.9, lifestyle modification advised 6. DVT PPx- Lovenox SC 7. Code status - Full code Inpatient E&M: [id number] Subs Hosp L2
[2019-11-03] MEDS: Acetaminophen 325 MG Tablet 650 MG PO ×2 (09:15→15:44)
[2019-11-03] MEDS: Enoxaparin 120 MG/0.8 ML Syringe 110 MG SC ×2 (09:16→20:55)
--- NOTE | 2019-11-03 11:08 | CASEMGMT ---
Pt states will be able to isolate once discharged to home. Pt has and 2 daughters at home who are currently isolating themselves. and one daughter are symptomatic and in contact with their PCP and have a pulse ox. Pt's other daughter is not symptomatic but is still in quarantine. Fiona DANG CM
--- NOTE | 2019-11-03 15:45 | PN.ID_ITS ---
Patient Problems: Active and Suspected Problems Suspected COVID-19 virus infection (Acute) Community acquired pneumonia (Acute) Hypoxia (Acute) Hypokalemia (Acute) Subjective: Feeling better, diarrhea/dyspnea/aches improved. No sore throat. dx with covid and strep throat. Denies fever overnight, but did have temp of 103. - Physical Exam Vitals/I&O's: Vital Signs Temp Pulse Resp BP Pulse Ox 101.4 F H 103 H 26 H 131/73 H 99 11/03/19 15:43 11/03/19 15:43 11/03/19 15:43 11/03/19 15:43 11/03/19 15:43 Oxygen Flow Rate (L/min) 2 Oxygen Delivery Method Nasal Cannula Weight: 119 kg Body Mass Index (BMI) 31.9 Intake and Output for Last 24 Hours 11/01/19 11/02/19 11/03/19 23:59 23:59 23:59 Intake Total 1575 / 1695 2606.58 / 2606.58 470 / 470 Output Total 0 / 0 Balance 1575 / 1695 2606.58 / 2606.58 470 / 470 General: Alert, Cooperative, No apparent distress Lungs: Clear to auscultation, Normal air movement Cardiovascular: Regular rate, Regular Rhythm Abdomen: Soft, Non Tender, Non-Distended Skin: No rashes Microbiology Past 72 Hours 10/31/19 13:02 Blood Culture (Wb) #2 - Right Forearm Blood Culture - Preliminary No growth in 48 hours. 10/31/19 12:55 Blood Culture (Wb) - Left Wrist Blood Culture - Preliminary No growth in 48 hours. 10/31/19 12:58 Mucosa - Nasopharyngeal Coronavirus COVID-19 PCR - Final SARS-CoV-2 (COVID 19) 10/31/19 18:55 Stool Enteric Bacteriology - Final 10/31/19 18:55 Interface Orders Legionella Antigen - Final 10/31/19 18:55 Interface Orders Streptococcus pneumoniae Antigen (M - Final Laboratory Results 11/03/19 04:45: WBC 6.5, RBC 5.39, Hgb 15.7, Hct 46.4, MCV 86.1, MCH 29.1, MCHC 33.8, RDW Std Deviation 41.9, RDW Coeff of Douglas 13.4, Plt Count 135 L, MPV 10.6, Immature Gran % (Auto) 0.800, Neut % (Auto) 77.6 H, Lymph % (Auto) 15.3 L, [place] % (Auto) 6.0, Eos % (Auto) 0.0, Baso % (Auto) 0.3, Absolute Neuts (auto) 5.0, Absolute Lymphs (auto) 0.99, Nucleated RBC % 0 11/03/19 04:45: Sodium 134 L, Potassium 3.5, Chloride 99, Carbon Dioxide 25.0, Anion Gap 10, BUN 14, Creatinine 1.08, Estim Creat Clear Calc 91.53, Est GFR (MDRD) Af Amer 90, Est GFR (MDRD) Non-Af 75, BUN/Creatinine Ratio 13.0, Glucose 106, Calcium 8.2 L, Ferritin 1461 H, Total Bilirubin 0.60, AST 44 H, ALT 61, Alkaline Phosphatase 50, C-React Prot Ext Range 98.10 H, Total Protein 7.4, Albumin 2.9 L, Globulin 4.5 H, Albumin/Globulin Ratio 0.6 L Current Medications Acetaminophen (Tylenol) 650 mg PO Q6H PRN PRN PRN Reason: Pain Score 1-10/Temp > 100.7 F Last Admin: 11/03/19 15:44 Dose: 650 mg Documented by: Albuterol Sulfate (Ventolin Hfa (Sp)) 2 puff INHALATION Q4H PRN PRN PRN Reason: SHORTNESS OF BREATH Enoxaparin Sodium (Lovenox) 110 mg SC BID [facility] Last Admin: 11/03/19 09:16 Dose: 110 mg Documented by: Sodium Chloride () 250 mls @ 15 mls/hr IV .[id number] PRN PRN Reason: Saline Flush Sodium Chloride () 250 mls @ 15 mls/hr IV .[id number] PRN PRN Reason: Additional IVPB Infusion Loperamide HCl (Imodium) 2 mg PO Q2H PRN PRN PRN Reason: Diarrhea Last Admin: 11/03/19 15:44 Dose: 2 mg Documented by: Nutritional Formula (Lactose Free) (Ensure Enlive) 120 ml PO 4X/DAY [facility] Last Admin: 11/03/19 15:34 Dose: Not Given Documented by: Ondansetron HCl (Zofran) 4 mg IV Q8H PRN PRN PRN Reason: NAUSEA/VOMITING Potassium Chloride (K-Dur) 40 meq PO BIDCM [place] Last Admin: 11/03/19 15:44 Dose: 40 meq Documented by: Sodium Chloride () 10 - 40 ml IV UD PRN PRN Reason: SALINE FLUSH Last Admin: 11/03/19 03:52 Dose: 20 ml Documented by: Medical Necessity - Tobacco Use Smoking Status: Never smoker Tobacco Use: Non-smoker Route of nutrition/ use of supplements: [] Nutritional Intake: [] IV Site: [] Granado Catheter: [] - Assessment/Plan Antibiotics: [] Assessment/Plan: [] Active and Suspected Problems Suspected COVID-19 virus infection (Acute) Community acquired pneumonia (Acute) Hypoxia (Acute) Hypokalemia (Acute) COVID (+) with hypoxia. PCT was neg. UAg neg. Bcx neg so far. No sputum. Still with fever. Had elevated CRP, ferritin, and LFTs. Mild elevation in d- dimer. Lymphopenia present on admit as well. Still on 3L O2, diarrhea improved, feeling better overall. is now (+) covid. Daughter also sick at home. Other daughter is isolating in her room. Will repeat markers tomorrow. Off abx. Could go home this weekend if he continues to feel better. Will follow, d/w Dr. Glass.
[2019-11-04] VITALS (10 sets, daily range): BP systolic 94–123; BP diastolic 52–77; PULSE 81–109; RESP 18–28; TEMP 37.1–37.8; O2SAT 85–98
[2019-11-04 04:35] LABS: Absolute Lymphocyte Count 0.96 X10^3/uL (0.83-4.51); Absolute Neutrophil Count 4.6 X10^3/uL (2.0-7.7); Basophil# 0.01 X10^3/uL; Basophil% 0.2 % (0-1); Eosinophil# 0.01 X10^3/uL; Eosinophils% 0.2 % (0-5); Hemoglobin 14.2 g/dL (13.0-16.5); Lymphocyte # 0.96 X10^3/ul (4.0); Lymphocyte % 16.1 % (19-41); Mean Corp Hgb Conc 33.8 g/dL (32-36); Mean Corpuscular Hgb 28.7 pg (27.0-32.0); Mean Platelet Vol. 10.3 fl (6.2-12.0); Monocyte# 0.37 X10^3/uL; Monocyte% 6.2 % (0-10); NRBC Flagged by Analyzer 0 % (0-5); Neutrophil # 4.55 X10^3/uL (2.7-7.7); Neutrophil % 76.3 % (47-70); Platelet Count 149 K/mm3 (150-450); RBC Distribution Width CV 13.3 % (11.6-14.6); RBC Distribution Width SD 41.3 fl (35.1-43.9); Red Blood Count 4.94 M/mm3 (4.6-6.2)
[2019-11-04 04:58] LABS: ALB/GLOB Ratio 0.6 RATIO (0.9-2.4); AST(SGOT) 59 U/L (15-37); Alanine Aminotransfer ALT/SGPT 70 U/L (16-61); Albumin, Serum 2.4 g/dL (3.2-5.0); Alkaline Phosphatase 44 U/L (45-117); Anion Gap 8 (5-15); BUN 18 mg/dL (7-18); BUN/Creat Ratio 19.5 RATIO (10-20); Chloride 101 mmol/L (98-107); Creatinine, Serum 0.92 mg/dL (0.70-1.30); EST Glomerular Filtration Rate 89 mL/min (>60); Est Glom Filt Rate - Afr Amer 108 mL/min (>60); Estimated Creatinine Clearance 107.45 ml/min; Ferritin 1651 ng/mL (26-388); Globulin 4.1 g/dL (2.2-4.2); Glucose 115 mg/dL (74-106); Potassium 3.6 mmol/L (3.5-5.1); Protein, Total 6.5 g/dL (6.4-8.2); Sodium Level 133 mmol/L (136-145)
[2019-11-04 05:30] LABS: Procalcitonin 0.25 ng/mL (0.00-0.09)
--- NOTE | 2019-11-04 07:05 | PCM.PN.PUL ---
Patient Problems: Active and Suspected Problems Suspected COVID-19 virus infection (Acute) Community acquired pneumonia (Acute) Hypoxia (Acute) Hypokalemia (Acute) Subjective: Patient did well overnight. Patient states that his stool is now pudding consistency. Patient did have a fever overnight and remains on low-dose nasal cannula. Patient is denying any abdominal pain. Patient feels that he is strong enough to go home with oxygen. Patient's family has tested positive. - Physical Exam Vitals/I&O's: Vital Signs Temp Pulse Resp BP Pulse Ox 37.1 C 95 26 H 122/72 H 94 11/04/19 04:43 11/04/19 04:43 11/04/19 04:43 11/04/19 04:43 11/04/19 04:43 Oxygen Flow Rate (L/min) 2 Oxygen Delivery Method Nasal Cannula Weight: 119 kg Body Mass Index (BMI) 31.9 Intake and Output for Last 24 Hours 11/02/19 11/03/19 11/04/19 23:59 23:59 23:59 Intake Total 2606.58 / 2606.58 1070 / 1470 900 / 900 Output Total 0 / 0 Balance 2606.58 / 2606.58 1070 / 1470 900 / 900 General: Alert, Oriented x3, Cooperative, No apparent distress, Well developed, Well nourished, - - Obese. Speaking in full sentences. HEENT: Atraumatic, PERRLA, EOMI, Normocephalic, - - No scleral icterus or injection noted. Glasses in place. Oral: Moist Mucosa, No Gingival or Mucosal Lesions/ Ulcerations Neck: Supple, No JVD, No Nodes, Trachea Midline Lungs: No rhonchi, No wheeze, No rales, Diminished, - - Symmetric expansion. No dullness to percussion. Cardiovascular: Regular rate, Regular Rhythm, Normal S1, Normal S2, No murmurs, No rub noted, No Gallop Abdomen: Bowel Sounds Present, Soft, Non Tender, Non-Distended, Obese Extremities: No clubbing, No cyanosis, No edema, Capillary Refill Less than 3 Seconds Skin: No rashes, No breakdown Musculoskeletal: No Tenderness to Palpation of Joints or Extremities Lymphatic: No Cervical, Supraclavicular, or Inguinal Adenopathy Neurological: Cranial nerves II-XII grossly intact, Neuro grossly intact, Motor Exam 5/5 strength throughout Psych/Mental Status: Alert and oriented to time, place, person, mood and affect Microbiology Past 72 Hours 10/31/19 13:02 Blood Culture (Wb) #2 - Right Forearm Blood Culture - Preliminary No growth in 48 hours. 10/31/19 12:55 Blood Culture (Wb) - Left Wrist Blood Culture - Preliminary No growth in 48 hours. 10/31/19 12:58 Mucosa - Nasopharyngeal Coronavirus COVID-19 PCR - Final SARS-CoV-2 (COVID 19) 10/31/19 18:55 Stool Enteric Bacteriology - Final Laboratory Results 11/04/19 04:20: WBC 6.0, RBC 4.94, Hgb 14.2, Hct 42.0, MCV 85.0, MCH 28.7, MCHC 33.8, RDW Std Deviation 41.3, RDW Coeff of Douglas 13.3, Plt Count 149 L, MPV 10.3, Immature Gran % (Auto) 1.000 H, Neut % (Auto) 76.3 H, Lymph % (Auto) 16.1 L, [place] % (Auto) 6.2, Eos % (Auto) 0.2, Baso % (Auto) 0.2, Absolute Neuts (auto) 4.6, Absolute Lymphs (auto) 0.96, Nucleated RBC % 0 11/04/19 04:20: Sodium 133 L, Potassium 3.6, Chloride 101, Carbon Dioxide 24.0, Anion Gap 8, BUN 18, Creatinine 0.92, Estim Creat Clear Calc 107.45, Est GFR (MDRD) Af Amer 108, Est GFR (MDRD) Non-Af 89, BUN/Creatinine Ratio 19.5, Glucose 115 H, Calcium 8.0 L, Ferritin 1651 H, Total Bilirubin 0.50, AST 59 H, ALT 70 H, Alkaline Phosphatase 44 L, C-React Prot Ext Range 89.40 H, Total Protein 6.5, Albumin 2.4 L, Globulin 4.1, Albumin/Globulin Ratio 0.6 L 11/04/19 04:20: Procalcitonin 0.25 H Current Medications Acetaminophen (Tylenol) 650 mg PO Q6H PRN PRN PRN Reason: Pain Score 1-10/Temp > 100.7 F Last Admin: 05/15/20 15:44 Dose: 650 mg Documented by: Albuterol Sulfate (Ventolin Hfa (Sp)) 2 puff INHALATION Q4H PRN PRN PRN Reason: SHORTNESS OF BREATH Enoxaparin Sodium (Lovenox) 110 mg SC BID [facility] Last Admin: 11/03/19 20:55 Dose: 110 mg Documented by: Sodium Chloride () 250 mls @ 15 mls/hr IV .[id number] PRN PRN Reason: Saline Flush Sodium Chloride () 250 mls @ 15 mls/hr IV .[id number] PRN PRN Reason: Additional IVPB Infusion Loperamide HCl (Imodium) 2 mg PO Q2H PRN PRN PRN Reason: Diarrhea Last Admin: 11/03/19 15:44 Dose: 2 mg Documented by: Nutritional Formula (Lactose Free) (Ensure Enlive) 120 ml PO 4X/DAY [facility] Last Admin: 11/03/19 20:52 Dose: 120 ml Documented by: Ondansetron HCl (Zofran) 4 mg IV Q8H PRN PRN PRN Reason: NAUSEA/VOMITING Potassium Chloride (K-Dur) 40 meq PO BIDCM [facility] Last Admin: 11/03/19 15:44 Dose: 40 meq Documented by: Sodium Chloride () 10 - 40 ml IV UD PRN PRN Reason: SALINE FLUSH Last Admin: 11/03/19 03:52 Dose: 20 ml Documented by: Medical Necessity - Tobacco Use Smoking Status: Never smoker Tobacco Use: Non-smoker Assessment/Plan All Active Problems Suspected COVID-19 virus infection (Acute) Community acquired pneumonia (Acute) Hypoxia (Acute) Hypokalemia (Acute) RECOMMENDATIONS: 1. Wean supplemental oxygen as tolerated. Walking oximetry prior to discharge 2. Unclear anticoagulation required to discharge 3. Consider discharge from a pulmonary perspective 4. Monitor fluid status. 5. Would not recommend steroid therapy at this time 6. Potassium supplementation as indicated IMPRESSIONS: 1. Acute hypoxic respiratory insufficiency secondary to acute COVID associated pneumonia Low clinical suspicion for superimposed bacterial infection at this time. Antibiotics have been discontinued. Procalcitonin is low indicating low risk for systemic sepsis. Patient reports minimal shortness of breath, but does have some dyspnea on exertion and conversational dyspnea. This does appear to be improving. Patient does not appear to have any underlying obstructive lung disease, so steroids would be contraindicated. CRP and stool consistency continue to improve. Likely okay to be discharged from a pulmonary perspective. May require supplemental oxygen. If discharged, patient can have a virtual visit with nurse practitioner in 2 weeks in our office. Infectious diseases following. Wean oxygen as tolerated. 2. Hypokalemia secondary to acute diarrhea, likely secondary to COVID-19 Patient has reported 8 bowel movements over the last 24 hours. Patient is currently off maintenance fluids with potassium supplementation. Patient has not required any potassium supplementation or IV fluids in over 24 hours. 3. Obesity/CODE STATUS Complicates care, management, recovery and prognosis. Given patient's COVID positive status, would not initiate empiric nocturnal positive airway pressure, but does have several risk factors for obstructive sleep apnea. Confirmed patient is a full code Inpatient E&M: 29192 Subs Hosp L2
[2019-11-04] MEDS: Enoxaparin 120 MG/0.8 ML Syringe 110 MG SC (07:48)
--- NOTE | 2019-11-04 08:20 | CT_ITS ---
STUDY: CTA CHEST REASON FOR EXAM: Male, 59 years old. ELEVATED D-DIMER, POSITIVE COVID RADIATION DOSAGE (If Supplied By Facility): CTDIvol = ( 11.47 ) mGy, DLP = ( 497.90 ) mGycm TECHNIQUE: The examination was performed with the intravenous administration of IV 100mL Isovue-370. Post-processing of the angiographic images was performed, with multiplanar reformation and 3D reconstruction. Individualized dose optimization techniques were used for this CT. COMPARISON: None. FINDINGS: Normal enhancement of the main pulmonary artery and right and left pulmonary arteries. Normal enhancement of the bilateral peripheral pulmonary arteries. There is no demonstrated pulmonary embolism. Normal thoracic aorta and visualized great vessels. There is no demonstrated aortic dissection. Normal heart and pericardium. Normal mediastinum. Normal hilar regions. Normal visualized trachea and bronchi. The lungs are well expanded. Basilar atelectasis. Bilateral patchy infiltrates. Normal pleura. Normal chest wall structures. Degenerative vertebral changes. 2.3 cm right adrenal nodule. CT/CTA Chest W/WO Contrast IMPRESSION: No demonstrated pulmonary embolism or arterial dissection. Bilateral patchy infiltrates. Right adrenal nodule. Electronically Signed: Nader Hall DO at 10:47 EDT Tel [phone], Service support ,
--- NOTE | 2019-11-04 08:21 | VDLE_ITS ---
Reason For Study: elevated D-Dimer RIGHT LEFT CFV, FV, POP V, T/P Trunk, PTV, and Peroneal CFV, FV, POP V, T/P Trunk, PTV, and Peroneal V are all compressible. V are all compressible. GSV is dilated and noncompressible. No GSV is compressible. extension into the deep system. Procedure Exam performed portable in ICU/CCU. The exam was abbreviated due to the COVID 19 protocol. The exam was diagnostic. A preliminary report was called and/or faxed to [facility]. Interpretation Summary No evidence for acute deep venous thrombosis bilateral lower extremities Superficial thrombophlebitis right great saphenous vein Patent and compressible left great saphenous vein Abbreviated Covid-19 protocol Ordering Physician: Stephani Glass Performed By: Ryne Pelaez RVT
--- NOTE | 2019-11-04 08:25 | DCINST_ITS ---
- Discharge Diagnoses Current Active Problems: Current Active and Chronic Problems Suspected COVID-19 virus infection (Acute) Community acquired pneumonia (Acute) Hypoxia (Acute) Hypokalemia (Acute) Reason(s) for Visit for Discharge Instructions: Shortness of breath You will use the following diet at home:: Regular Your food should be the consistency of: Regular Your liquids should be the consistency of: Regular/Thin Discharge Activity: Return to Normal Activity Additional Instructions: Continue to quarantine until you are 72 hours fever free. Continue to use your oxygen all your the time. Do not go near open flames whilst on oxygen. You will follow-up with motorcycle police in 2 weeks for a virtual visit. Continue to keep hydrated and use a mask. Take note of your medications. Look out for any evidence of bleeding whilst on the blood thinners. Allergies/Adverse Reactions: Allergies No Known Allergies Allergy (Verified 10/31/19 12:35) Medications to take at Discharge Acetaminophen [Tylenol Tablet] 650 mg PO Q6H PRN PRN tablet 11/04/19 Albuterol Inhaler [Ventolin Hfa] 2 puff INHALATION Q4H PRN PRN #1 inhaler 11/04/19 Apixaban [Eliquis] 5 mg PO BID 30 Days #60 tab 11/04/19 Ensure Enlive 120 ml PO 4X/DAY #120 liquid 11/04/19 Loperamide [Imodium] 2 mg PO Q2H PRN PRN 7 Days #30 tab 11/04/19 The following prescriptions were given: Apixaban [Eliquis] 5 mg PO BID 30 Days #60 tab Transmission Status: Pending to [facility] Ensure Enlive 120 ml PO 4X/DAY #120 liquid Transmission Status: Pending to [facility] Loperamide [Imodium] 2 mg PO Q2H PRN PRN 7 Days #30 tab PRN Reason: Diarrhea Transmission Status: Pending to [facility] Albuterol Inhaler [Ventolin Hfa] 2 puff INHALATION Q4H PRN PRN #1 inhaler PRN Reason: SHORTNESS OF BREATH Transmission Status: Pending to [facility] Primary Care Physician: Ingrid Calderon PA [Primary Care Provider] - Please follow up with your Primary Care Physician in: within 2 weeks Test Results: Test results from this visit will be discussed in further detail at your follow- up appointment, if applicable. Please Follow Up With: Jose Alejandro Malone MD When: in 2 weeks, virtual visit Proposed Discharge Date: 11/04/19
--- NOTE | 2019-11-04 08:31 | DS.PCM_ITS ---
Discharge Date and Diagnosis - Problem List Patient Problems: Active and Suspected Problems COVID-19 virus infection (Acute) Community acquired pneumonia (Acute) Hypoxia (Acute) Hypokalemia (Acute) Date of Admission: 10/31/19 Date of Discharge: 11/04/19 - Primary Discharge Diagnosis Active and Suspected Problems Acute COVID-19 associated pneumonia Community acquired pneumonia Hypoxia (Acute) Hypokalemia (Acute) Hyponatremia COVID-19 associated diarrhea Obesity, BMI 31.9 Hospital Course and Treatment Imaging Results: 11/04/19 08:20 CTA Chest W/WO Contrast [CT] Urgent Clinical Impression(s) from Imaging Studies Chest X-Ray 10/31/19 12:40 IMPRESSION: Subtle infiltrate in the right upper lobe as well as infiltrate in the left lower lobe. Radiographic follow-up is recommended. Electronically Signed: Dru Mckeon, at 13:30 EDT , Service support , Chest CTA 11/04/19 08:20 IMPRESSION: No demonstrated pulmonary embolism or arterial dissection. Bilateral patchy infiltrates. Right adrenal nodule. Electronically Signed: Nadre Hall DO at 10:47 EDT Tel [phone], Service support , Pulmonology Infectious disease Operations: None Procedures: None Summary of Care Provided: 59 year old M with no significant past medical history who comes in with fever, chills, cough, shortness of breath ongoing for 8 days as well as 5 days of diarrhea. Patient lives with the and 2 daughters. his and 1 of his daughters also have fevers and cough. He works in [employer] and several people have been unwell. He denied any chest pain or dizziness or palpitations. He was seen earlier in [facility] and COVID-19 testing done but unsure of results at the time of admission. His COVID-19 test was positive in this admission. Was admitted to the cohort floor. He had leukopenia with lymphopenia. His potassium on admission was 3.1, magnesium was 2.3. He had elevation in his AST and ALT. Lactic acid was 1.1. Procalcitonin was 0.10. D-Dimer was elevated at 0.69. Patient was started on therapeutic anticoagulation. He continued to have profuse diarrhea. He had more than 10 bowel movements a day. Stool for enteric panel was negative. Patient was managed initially on IV antibiotics. Antibiotics were later discontinued. He was started on Imodium with improvement in his stools. He had hypokalemia that was replaced. Patient's oxygen requirements increased to 3 L and later on improved to 2 L. He qualified for oxygen at discharge. CTA of the chest done on discharge demonstrated no PE, bilateral patchy infiltrates and a right adrenal node. Doppler ultrasound of lower extremity was negative for acute DVT. Patient was discharged with incentive spirometer, albuterol inhaler, 2 weeks of Eliquis. He will follow-up with pulmonology for virtual visit. Patient Problems: Active and Suspected Problems COVID-19 virus infection (Acute) Community acquired pneumonia (Acute) Hypoxia (Acute) Hypokalemia (Acute) Subjective: On the day of discharge, patient was seen and examined. Denied any new complaints for fatigue. Denied any worsening respiratory symptoms. His stools are soft, getting formed. He remains on 2 L of oxygen. He qualified for oxygen, will be discharged home on oxygen. Objective: Physical exam: General: Alert, Oriented x3, Cooperative, No apparent distress, - - comfortable, on 2L oxygen HEENT: Atraumatic, PERRLA, EOMI, Normocephalic Oral: Moist Mucosa Neck: Supple Lungs: Diminished Cardiovascular: Regular rate, Regular Rhythm, Normal S1, Normal S2, No murmurs Abdomen: Bowel Sounds Present, Soft, Non Tender, Non-Distended, No Hepato- splenomegaly, Distended, Obese Extremities: No edema Skin: No rashes, No breakdown Musculoskeletal: No Tenderness to Palpation of Joints or Extremities Lymphatic: No Cervical, Supraclavicular, or Inguinal Adenopathy Neurological: Cranial nerves II-XII grossly intact, Neuro grossly intact Psych/Mental Status: Normal Affect, Appropriate - Physical Exam Vitals/I&O's: Vital Signs Temp Pulse Resp BP Pulse Ox 98.7 F 94 26 H 122/72 H 85 11/04/19 04:43 11/04/19 08:00 11/04/19 04:43 11/04/19 04:43 11/04/19 08:29 Oxygen Flow Rate (L/min) [] 2 Oxygen Flow Rate (L/min) 2 Oxygen Delivery Method Nasal Cannula Weight: 119 kg Body Mass Index (BMI) 31.9 Intake and Output for Last 24 Hours 11/02/19 11/03/19 11/04/19 23:59 23:59 23:59 Intake Total 2606.58 / 2606.58 1070 / 1470 900 / 900 Output Total 0 / 0 Balance 2606.58 / 2606.58 1070 / 1470 900 / 900 Microbiology Past 72 Hours 10/31/19 13:02 Blood Culture (Wb) #2 - Right Forearm Blood Culture - Preliminary No growth in 48 hours. 10/31/19 12:55 Blood Culture (Wb) - Left Wrist Blood Culture - Preliminary No growth in 48 hours. 10/31/19 12:58 Mucosa - Nasopharyngeal Coronavirus COVID-19 PCR - Final SARS-CoV-2 (COVID 19) 10/31/19 18:55 Stool Enteric Bacteriology - Final Laboratory Results 11/04/19 04:20: WBC 6.0, RBC 4.94, Hgb 14.2, Hct 42.0, MCV 85.0, MCH 28.7, MCHC 33.8, RDW Std Deviation 41.3, RDW Coeff of Douglas 13.3, Plt Count 149 L, MPV 10.3, Immature Gran % (Auto) 1.000 H, Neut % (Auto) 76.3 H, Lymph % (Auto) 16.1 L, [place] % (Auto) 6.2, Eos % (Auto) 0.2, Baso % (Auto) 0.2, Absolute Neuts (auto) 4.6, Absolute Lymphs (auto) 0.96, Nucleated RBC % 0 11/04/19 04:20: Sodium 133 L, Potassium 3.6, Chloride 101, Carbon Dioxide 24.0, Anion Gap 8, BUN 18, Creatinine 0.92, Estim Creat Clear Calc 107.45, Est GFR (MDRD) Af Amer 108, Est GFR (MDRD) Non-Af 89, BUN/Creatinine Ratio 19.5, Glucose 115 H, Calcium 8.0 L, Ferritin 1651 H, Total Bilirubin 0.50, AST 59 H, ALT 70 H , Alkaline Phosphatase 44 L, C-React Prot Ext Range 89.40 H, Total Protein 6.5, Albumin 2.4 L, Globulin 4.1, Albumin/Globulin Ratio 0.6 L 11/04/19 04:20: Procalcitonin 0.25 H Current Medications Acetaminophen (Tylenol) 650 mg PO Q6H PRN PRN PRN Reason: Pain Score 1-10/Temp > 100.7 F Last Admin: 11/03/19 15:44 Dose: 650 mg Documented by: Albuterol Sulfate (Ventolin Hfa (Sp)) 2 puff INHALATION Q4H PRN PRN PRN Reason: SHORTNESS OF BREATH Enoxaparin Sodium (Lovenox) 110 mg SC BID [facility] Last Admin: 11/04/19 07:48 Dose: 110 mg Documented by: Sodium Chloride () 250 mls @ 15 mls/hr IV .[id number] PRN PRN Reason: Saline Flush Sodium Chloride () 250 mls @ 15 mls/hr IV .[id number] PRN PRN Reason: Additional IVPB Infusion Iopamidol (Contrast Allergy Check) 0 ml IV X1 MARION Loperamide HCl (Imodium) 2 mg PO Q2H PRN PRN PRN Reason: Diarrhea Last Admin: 11/03/19 15:44 Dose: 2 mg Documented by: Nutritional Formula (Lactose Free) (Ensure Enlive) 120 ml PO 4X/DAY [facility] Last Admin: 11/04/19 07:49 Dose: Not Given Documented by: Ondansetron HCl (Zofran) 4 mg IV Q8H PRN PRN PRN Reason: NAUSEA/VOMITING Potassium Chloride (K-Dur) 40 meq PO BID [facility] Last Admin: 11/04/19 07:48 Dose: 40 meq Documented by: Sodium Chloride () 10 - 40 ml IV UD PRN PRN Reason: SALINE FLUSH Last Admin: 11/03/19 03:52 Dose: 20 ml Documented by: Discharge Diet: No Restrictions Discharge Activity: Return to Normal Activity Home Medications: Medications to take at Discharge Acetaminophen [Tylenol Tablet] 650 mg PO Q6H PRN PRN tab 11/04/19 Albuterol Inhaler [Ventolin Hfa] 2 puff INHALATION Q4H PRN PRN #1 inhaler 11/04/19 Apixaban [Eliquis] 5 mg PO BID 14 Days #28 tab 11/04/19 Ensure Enlive 120 ml PO 4X/DAY #120 liquid 11/04/19 Loperamide [Imodium] 2 mg PO Q2H PRN PRN 7 Days #30 tab 11/04/19 Following Prescrptions Were Given to Patient: Apixaban [Eliquis] 5 mg PO BID 14 Days #28 tab Transmission Status: Received by MARY JUAN RD Ensure Enlive 120 ml PO 4X/DAY #120 liquid Transmission Status: Received by MARY JUAN RD Loperamide [Imodium] 2 mg PO Q2H PRN PRN 7 Days #30 tab PRN Reason: Diarrhea Transmission Status: Received by MARY JUAN RD Albuterol Inhaler [Ventolin Hfa] 2 puff INHALATION Q4H PRN PRN #1 inhaler PRN Reason: SHORTNESS OF BREATH Transmission Status: Received by MARY JUAN RD Primary Care Physician: Ingrid Calderon PA [Primary Care Provider] - Please follow up with your Primary Care Physician in: within 2 weeks Please Follow Up With: Jose Alejandro Malone MD When: in 2 weeks, virtual visit Disposition: Home Minutes spent on discharge:: 40 Patient Condition:: Stable Medical Necessity - Tobacco Use Smoking Status: Never smoker Tobacco Use: Non-smoker Meaningful Use Info Meaningful Use Diagnoses (Choose all that apply): None applicable Inpatient E&M: 33010 Disch Hosp
--- NOTE | 2019-11-07 14:48 | CASEMGMT ---
RN CM Note: Call received that pt's Eliquis needs a prior authorization. 30 day free trial card called to pharmacy. Pt has 2 week prescription and this will be no cost. Call to pt to update, and call to PCP office, spoke to nurse to notify pt has gone home, is COVID + and new on Eliquis. Nurse will have physician review chart and contact patient if needs any adjustment. Jo CASTANON RN ACM
== END 2019-11-04 15:15 | disposition home or self-care (01) | DRG 177 ==
LOC: ED 13:59 → ICU 14:13
PROVIDERS: Internal Medicine Infectious Disease; Admitting Provider Internal Medicine; Emergency Provider Emergency Medicine; PCP Physician Assistant; Visit Provider Internal Medicine
DX: U07.1 COVID-19 (principal); J12.89 Other viral pneumonia; E87.1 Hypo-osmolality and hyponatremia; R09.02 Hypoxemia; E87.6 Hypokalemia; E66.9 Obesity, unspecified; Z68.31 Body mass index [BMI] 31.0-31.9, adult
CPT/HCPCS: 71045; 71275; 80053; 82728; 83605; 83735; 83880; 84145; 84484; 85025; 85379; 86140; 87040; 87449; 87506; 87635; 93005; 93970; 96360; 97803; 99251; 99285; G2023; J7040; J7050; Q9967; A4216; G0463; U0002

== ENCOUNTER → 2020-01-12 07:40 | Outpatient (CLI) | payer OTHER, SELFPAY ==
[2019-11-30 08:15] VITALS: BMI 31.9
--- NOTE | 2020-01-12 07:41 | CT_ITS ---
STUDY: CT CHEST WITHOUT CONTRAST REASON FOR EXAM: Male, 59 years old. COVID F/U. Patient was not on vent. RADIATION DOSAGE (If Supplied By Facility): CTDIvol = ( 19.71 ) mGy, DLP = ( 743.54 ) mGycm TECHNIQUE: Transaxial imaging was performed without the administration of intravenous contrast material. Individualized dose optimization techniques were used for this CT. COMPARISON: 11/04/2019, 12/03/2018 FINDINGS: Previous described airspace opacifications in both lung thibodeaux have resolved. There is no superimposed infiltrate, suspicious groundglass opacification. There is a stable 2 mm noncalcified nodule in the right middle lobe on axial image seventy-three which is too small to characterize. Soft tissue windows show normal-appearing thyroid gland. Scattered subcentimeter axillary mediastinal lymph nodes. No pleural or pericardial effusions. Normal heart and pericardium. Normal hilar regions. Normal unenhanced pulmonary arteries. Normal aorta arch and descending thoracic aorta. There are multi-level degenerative changes of the thoracic spine. Limited cuts through the upper abdomen show a stable 2.2 cm right adrenal adenoma CT/Chest without Contrast IMPRESSION: No acute pulmonary process. Previously described diffuse airspace opacifications in both lung thibodeaux have resolved Stable 2 mm noncalcified pleural-based nodule in the right middle lobe, this is too small to characterize, but is essentially unchanged dating back to 12/03/2018. A six-month follow-up study could be performed to assure stability. No pleural or pericardial effusions Stable right adrenal adenoma needs no specific follow-up Electronically Signed: Alejandro Farr MD at 9:43 EDT , Service support ,
--- NOTE | 2020-01-12 13:01 | PFTCOMP ---
COMPLETE PULMONARY FUNCTION TEST INTERPRETATION Brief HPI: Patient is a 59 year old male, currently under the care of myself, who presents to [facility] for complete pulmonary function tests secondary to diagnosis of COVID-19. Respiratory therapist reports good effort and reproducible results. Interpretation: Forced expiration spirometry shows a mild large airways obstructive ventilatory defect with an FEV1 of 78% predicted. There is no significant bronchodilator response by strict ATS criteria. Spirograms are of good quality and plateau slowly, indicating slowly emptying areas of the lungs. The respiratory flow volume loop shows a normal pattern. Lung volumes by body plethysmography show a normal total lung capacity at 8.89 L, 109% predicted. FRC and RV are elevated out of proportion. Lung volume measurements are consistent with hyperinflation and air-trapping. Diffusion capacity by carbon monoxide is at the lower limit of normal at 78% predicted. The airway resistance is normal. No previous pulmonary function tests were available for review. Impression: Irreversible mild large airways obstructive ventilatory defect with a symmetric reduction diffusing capacity.
== END ==
PROVIDERS: PCP Physician Assistant; Referring Provider Internal Medicine Critical Care Medicine; Visit Provider Internal Medicine Critical Care Medicine
DX: U07.1 COVID-19 (principal)
CPT/HCPCS: 71250; 94060; 94726; 94729

== ENCOUNTER → 2020-02-21 17:41 | Outpatient (CLI) | payer OTHER, SELFPAY ==
[2019-11-30 08:15] VITALS: BMI 31.9
== END ==
PROVIDERS: PCP Physician Assistant; Referring Provider Physician Assistant; Visit Provider Physician Assistant
DX: Z11.59 Encounter for screening for other viral diseases (principal)
CPT/HCPCS: 87635; C9803; U0003

== ENCOUNTER → 2020-02-29 14:40 | Outpatient (CLI) | payer OTHER, SELFPAY ==
[2019-11-30 08:15] VITALS: BMI 31.9
== END ==
PROVIDERS: PCP Physician Assistant; Visit Provider Nurse Practitioner Acute Care
DX: G47.10 Hypersomnia, unspecified (principal)
CPT/HCPCS: 95810

== ENCOUNTER → 2020-04-29 08:09 | Outpatient (CLI) | payer OTHER, SELFPAY ==
[2019-11-30 08:15] VITALS: BMI 31.9
--- NOTE | 2020-04-30 16:33 | PFTCOMP ---
COMPLETE PULMONARY FUNCTION TEST INTERPRETATION Brief HPI: Patient is a 59 year old male, currently under the care of Ursula Truong, who presents to [facility] for complete pulmonary function tests secondary to diagnosis of post viral fatigue syndrome. Respiratory therapist reports good effort and reproducible results. Interpretation: Forced expiration spirometry shows no large airways obstructive ventilatory defect with an FEV1 of 81% predicted. There is no significant bronchodilator response by strict ATS criteria. Spirograms are of good quality and plateau normally. The respiratory flow volume loop shows a normal pattern. Lung volumes by body plethysmography show a decreased total lung capacity at 6.23 L, 79% predicted. All other lung volumes are reduced symmetrically. Diffusion capacity by carbon monoxide is at the lower limit of normal at 80% predicted. The airway resistance is slightly elevated. Compared to previous pulmonary function tests from 01/12/2020, there has been no significant change. Impression: Mild restrictive ventilatory defect with a symmetric reduction diffusion capacity and no significant change compared to December 2019
== END ==
PROVIDERS: PCP Physician Assistant; Referring Provider Internal Medicine Critical Care Medicine; Visit Provider Internal Medicine Critical Care Medicine
DX: G93.3 Postviral and related fatigue syndromes (principal)
CPT/HCPCS: 94060; 94726; 94729

== ENCOUNTER → 2020-05-14 13:02 | Outpatient (CLI) | payer OTHER, SELFPAY ==
[2020-05-06 08:55] VITALS: BMI 34.9
== END ==
PROVIDERS: PCP Physician Assistant; Referring Provider Nurse Practitioner Acute Care; Visit Provider Nurse Practitioner Acute Care
DX: G47.33 Obstructive sleep apnea (adult) (pediatric) (principal)
CPT/HCPCS: 98960; G0463

== ENCOUNTER → 2020-09-24 07:55 | Outpatient (CLI) | payer OTHER, SELFPAY ==
[2020-08-19 11:12] VITALS: BMI 32.5
[2020-09-24 08:15] VITALS: PULSE 74; PULSE 84; PULSE 87; PULSE 90; PULSE 92; O2SAT 94; O2SAT 95; O2SAT 96; O2SAT 97
--- NOTE | 2020-09-24 08:20 | CPS ---
Patient stated that he currently wears 1.5L at night bled into his CPAP machine. Test was completed on RA oxygen saturations were maintained greater than 90% for entire test.
--- NOTE | 2020-09-24 12:43 | PCM.PSN.6M ---
PSN 6 Minute Walk Test - 6 Minute Walk Test 6 Minute Walk Test: 6 Minute Walk Test PSN:6-Minute Walk Test Start: 09/24/20 08:17 Freq: Status: Active Protocol: [id number].6MINW Document 09/24/20 08:15 HJ (Rec: 09/24/20 08:22 [id number]) 6 Minute Walk Test Date Performed 09/24/20 Time Performed 08:15 Height 6 ft 4 in Weight: 255 lb Weight in Pounds 255.[address]: Jose Alejandro Malone FIO2 (% Oxygen) 21 Assistive device used: None Pre-test Oxygen Delivery Method Room Air Pulse Ox (%) 96 Pulse Rate (60-100 beats/min) 74 Dyspnea Lori Scale (0-10) 0 Exertion Lori Scale (6-20) 6 1st minute Oxygen Delivery Method Room Air Pulse Ox (%) 96 Pulse Rate (60-100 beats/min) 87 2nd minute Oxygen Delivery Method Room Air Pulse Ox (%) 94 Pulse Rate (60-100 beats/min) 87 3rd minute Oxygen Delivery Method Room Air Pulse Ox (%) 95 Pulse Rate (60-100 beats/min) 84 4th minute Oxygen Delivery Method Room Air Pulse Ox (%) 94 Pulse Rate (60-100 beats/min) 90 5th minute Oxygen Delivery Method Room Air Pulse Ox (%) 94 Pulse Rate (60-100 beats/min) 87 6th minute Oxygen Delivery Method Room Air Pulse Ox (%) 94 Pulse Rate (60-100 beats/min) 92 Post-test Oxygen Delivery Method Room Air Pulse Ox (%) 97 Pulse Rate (60-100 beats/min) 84 Dyspnea Lori Scale (0-10) 0.5 Exertion Lori Scale (6-20) 6 Full Laps Walked 16 Partial Lap, Number of Tiles Walked 20 Total Distance Walked (ft) 964 09/24/20 08:20 Cardiopulmonary Services by Nova Reeder Patient stated that he currently wears 1.5L at night bled into his CPAP machine. Test was completed on RA oxygen saturations were maintained greater than 90% for entire test. Initialized on 09/24/20 08:20 - END OF NOTE - Interpretation Interpretation: The patient ambulated 964 feet over the course of 6 minutes beginning on room air without assistive devices or breaks. Pretesting oxygen saturation was noted to be 96% on room air. With ambulation, the saul oxygen saturation was 94%. There was no significant exertional oxygen desaturation. - Recommendations Recommendations: There is no indication for the use of supplemental oxygen at this time.
== END ==
PROVIDERS: PCP Physician Assistant; Referring Provider Internal Medicine Critical Care Medicine; Visit Provider Internal Medicine Critical Care Medicine
DX: R09.02 Hypoxemia (principal)
CPT/HCPCS: 94618

== ENCOUNTER 2021-09-04 13:55 | Outpatient (CLI) | payer OTHER, SELFPAY ==
--- NOTE | 2021-09-04 15:16 | PFTCOMP ---
COMPLETE PULMONARY FUNCTION TEST INTERPRETATION Brief HPI: Patient is a 61 year old male, currently under the care of myself, who presents to [facility] for complete pulmonary function tests secondary to diagnosis of dyspnea. Respiratory therapist reports good effort and reproducible results. Interpretation: Forced expiration spirometry shows no large airways obstructive ventilatory defect with an FEV1 of 79% predicted. There is no significant bronchodilator response by strict ATS criteria. Spirograms are of good quality and plateau normally. The respiratory flow volume loop shows a normal pattern. Lung volumes by body plethysmography show a slightly reduced total lung capacity at 7.07 L, 87% predicted. All other lung volumes are within normal limits. Diffusion capacity by carbon monoxide is decreased at 62% predicted. The airway resistance is normal. Compared to previous pulmonary function tests from 04/29/2020, there is been a significant reduction in DLCO by 23%. Impression: Mild restrictive ventilatory defect with a symmetric reduction diffusion capacity. There has been worsening compared to previous testing.
== END 2021-09-04 23:59 | disposition home or self-care (01) ==
LOC: PSN 13:55
PROVIDERS: PCP Physician Assistant; Referring Provider Internal Medicine Critical Care Medicine; Visit Provider Internal Medicine Critical Care Medicine
DX: U07.1 COVID-19 (principal)
CPT/HCPCS: 94060; 94726; 94729